=== PATIENT | male | born 1940 | race Caucasian/White ===

== ENCOUNTER 2020-05-21 13:26 | Inpatient (IN) | payer MEDICARE, SELFPAY ==
[2020-05-21] VITALS (8 sets, daily range): BP systolic 149–173; BP diastolic 66–88; PULSE 79–89; RESP 16–22; TEMP 36.1–37.2; O2SAT 96–100; BMI 35.3
--- NOTE | ~2020-05-21 | XR_ITS ---
EXAMINATION: XR chest 1V portable INDICATION: Soreness of breath TECHNIQUE: Portable AP chest at 0521 hours COMPARISON: 05/22/2020, 05/21/2020, 08/08/2008 FINDINGS: A mild diffuse interstitial pattern persists without significant change. A moderate size ri ght pleural effusion is unchanged. The heart size is stable. There is no pneumothorax. A stable right upper lobe mass is identified, stable since 2007 and likely benign. A dual-lead cardiac pacemaker of the left chest wall ends with leads in expected locations. IMPRESSION: 1. Mild pulmonary edema without significant change. Reviewed, dictated and finalized at location A.
--- NOTE | ~2020-05-21 | XR_ITS ---
XR elbow LT min 3V DATE: 05/27/2020 15:58 INDICATION: Left elbow posterior pain and swelling TECHNIQUE: 4 views COMPARISON: None FINDINGS: There is mild posterior soft tissue swelling which may be due to mild olecranon bursitis. T here is osteopenia. No fracture or dislocation or joint effusion. No periosteal reaction or bone dest ruction. IMPRESSION: Mild dorsal soft tissue swelling, possibly due to mild olecranon bursitis Osteopenia; no fracture or dislocation or joint effusion Reviewed, dictated and finalized at location A. IMPRESSION: Mild dorsal soft tissue swelling, possibly due to mild olecranon bu rsitis Osteopenia; no fracture or dislocation or joint effusion
--- NOTE | ~2020-05-21 | US_ITS ---
EXAMINATION: US arterial duplex LE DATE: 05/31/2020 16:30 INDICATION: Left popliteal artery aneurysm. TECHNIQUE: Multiple grayscale and Doppler ultrasound images of the left lower limb were obtained. COMPARISON: Left knee radiographs 05/30/2020 FINDINGS: Peak systolic velocities are 62 cm/s in left common femoral artery, 69 cm/s in deep femoral artery, 61 cm/s in proximal superficial femoral artery, 184 cm/s in mid superficial femoral artery, 36 cm/s in distal superficial femoral artery, 53 cm/s in popliteal artery, 42 cm/s in posterior tibia l artery, 36 cm/s in peroneal artery, and 37 cm/s in anterior tibial artery. There is a 1.5 cm fusifo rm aneurysm of popliteal artery. IMPRESSION: 1. 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 2. 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 Reviewed, dictated and finalized at location A. IMPRESSION: 1. 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 2. Moderate to severe arterial occlusive disease in left superficial femoral ar judy.
--- NOTE | ~2020-05-21 | XR_ITS ---
EXAMINATION: XR knee RT 3V EXAM DATE: 05/30/2020 13:32 INDICATION: Bilateral knee pain, osteoarthritis. TECHNIQUE: Three projections of the right knee. There is no prior study for comparison. FINDINGS: There is severe right knee patellofemoral and lateral tibiofemoral compartment primary oste oarthritis. Extensive arterial sclerotic disease. Small amount of joint fluid. There are no acute fr actures or dislocations identified. There is no subcutaneous gas. There are no radiopaque foreign bodies. IMPRESSION: Severe right knee osteoarthritis. Reviewed, dictated and finalized at location A.
--- NOTE | ~2020-05-21 | XR_ITS ---
EXAMINATION: XR knee LT 3V EXAM DATE: 05/30/2020 13:32 INDICATION: No known recent injury provided at this time. Pain of the left knee. TECHNIQUE: Three projections of the left knee. There is no prior study for comparison. FINDINGS: There is severe left knee patellofemoral and lateral tibiofemoral compartment primary osteo arthritis. Small joint effusion. There are extensive vascular calcifications. There is curvilinear c alcification contiguous to the distal popliteal arterial sclerosis, suspicious for an aneurysm which could be 2-3 cm. There are no acute fractures identified. There are no acute fractures or dislocation s identified. There is no subcutaneous gas. There are no radiopaque foreign bodies. IMPRESSION: 1. Severe left knee osteoarthritis. 2. Possible popliteal arterial 2 -3 cm aneurysm. Reviewed, dictated and finalized at location A.
--- NOTE | ~2020-05-21 | XR_ITS ---
EXAMINATION: XR chest 1V portable DATE: 05/21/2020 14:36 INDICATION: Cough. TECHNIQUE: A single frontal view of the chest was obtained on 2 radiographs. COMPARISON: PET/CT 08/08/2018 FINDINGS: There is a 4 cm right suprahilar mass. There are mild right perihilar airspace opacities. C alcified pulmonary nodules and calcified hilar and mediastinal lymph nodes are consistent with old gr anulomatous disease. No pleural effusion or pneumothorax. The heart size is normal. There is a left c hest wall pacer with leads in the right atrium and right ventricle. IMPRESSION: 1. 4 cm right suprahilar mass similar to the finding from 08/08/2008. Chest CT is recommended to excl ude malignancy. 2. Mild right perihilar airspace opacities, consistent with atelectasis versus pneumonia. Reviewed, dictated and finalized at location A. IMPRESSION: 1. 4 cm right suprahilar mass similar to the finding from 08/08/2008. Chest CT is recommended to exclude malignancy. 2. Mild right perihilar airspace opacities, consistent with atelectasis versus pneumonia.
--- NOTE | ~2020-05-21 | CT_ITS ---
EXAMINATION: CT chest abdomen pelvis w con DATE: 05/22/2020 16:42 INDICATION: Lung mass. TECHNIQUE: Computed tomography (CT) of the chest, abdomen, and pelvis was performed with 100 mL Omnip aque 350 intravenous contrast. Automated exposure control and iterative reconstruction technique were employed. The dose-length product was 1581.89 mGy-cm. COMPARISON: PET CT 08/08/2008 FINDINGS: CHEST CT: There are moderate-sized right and small left pleural effusions. Calcified pulmonary nodules and calc ified hilar and mediastinal lymph nodes are consistent with old granulomatous disease. There is ben h septal thickening lungs, consistent with mild pulmonary edema. There is a 6.5 x 3.5 cm right upper lobe mass. The heart size is normal. There are coronary artery calcifications. No pericardial effusio n. There is a left chest wall pacer with leads in the right atrium and right ventricle. There is bila teral gynecomastia. There is severe thoracic spondylosis. ABDOMEN/PELVIS CT: The liver is normal. There are changes of cholecystectomy. Calcifications in the spleen are consisten t with old granulomatous disease. The pancreas and adrenal glands are normal. There is mild atrophy o f the kidneys. There are cysts in the kidneys measuring up to 12 mm on the right. The bladder is deco mpressed by a Lee catheter. There are multiple stones in the bladder measuring up to 11 mm. There i s diffuse bladder wall thickening, which may be secondary to cystitis or chronic outlet obstruction. There are no dilated loops of bowel. The appendix is normal. There are no pathologically enlarged lym ph nodes. There is edema in the perirectal fat. There is severe lumbar spondylosis. There is anterior fusion from L1 to L3 and at L4-L5. IMPRESSION: 1. 6.5 x 3.5 cm right lung upper lobe mass, stable from 08/08/2008, likely benign. 2. Mild pulmonary edema. 3. Moderate-sized right and small left pleural effusions. 4. Bladder stones. Diffuse bladder wall thickening may be secondary to cystitis or chronic outlet obs truction. Reviewed, dictated and finalized at location A. IMPRESSION: 1. 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 2. Mild pulmonary edema. 3. Moderate-sized right and small left pleural effusions. 4. Bladder stones. Diffuse bladder wall thickening may be secondary to cystitis or chronic outlet obstruction.
--- NOTE | 2020-05-21 13:38 | ED.MALEGU ---
HPI - Male Genitourinary General Chief complaint: Urogenital-Male Stated complaint: PAIN WITH URINATION Time Seen by Provider: 05/21/20 13:27 History of Present Illness HPI Narrative: Brought in by EMS from home for pain with urination. He says that he can't pee and when he does it is painful. He has a roa catheter in place draining dark cloudy urine. He was reportedly recently hospitalized and treated for UTI and pneumonia. He does report a cough. No fever, SOB. Related Data Home Medications Medication Instructions Recorded Confirmed allopurinol 300 mg PO DAILY 05/21/20 05/21/20 aspirin 81 mg PO DAILY 05/21/20 05/21/20 calcipotriene 1 applic TOPICAL DAILY 05/21/20 05/21/20 calcitriol 0.25 mcg PO DAILY 05/21/20 05/21/20 cinacalcet 30 mg PO HS 05/21/20 05/21/20 citalopram 10 mg PO DAILY 05/21/20 05/21/20 desonide 1 applic TOPICAL BID PRN 05/21/20 05/21/20 ergocalciferol (vitamin D2) 1,250 mcg PO WEEKLY 05/21/20 05/21/20 [Vitamin D2] fludrocortisone 0.1 mg PO DAILY 05/21/20 05/21/20 fluticasone propionate [Allergy 1 spray INTRANASAL BID 05/21/20 05/21/20 Relief (fluticasone)] furosemide 40 mg PO DAILY 05/21/20 05/21/20 gemfibrozil 600 mg PO DAILY 05/21/20 05/21/20 hydrocodone-acetaminophen 1 tablet PO Q6H PRN 05/21/20 05/21/20 ipratropium-albuterol [Combivent 1 puff INHALATION Q4H 05/21/20 05/21/20 Respimat] lidocaine-prilocaine 2 g TOPICAL QID PRN 05/21/20 05/21/20 nitroglycerin 0.4 mg SUBLINGUAL Q5-15M PRN 05/21/20 05/21/20 omeprazole 40 mg PO DAILY 05/21/20 05/21/20 potassium chloride 10 meq PO DAILY 05/21/20 05/21/20 pramipexole 0.125 mg PO HS 05/21/20 05/21/20 umeclidinium-vilanterol [Anoro 1 inh INHALATION DAILY 05/21/20 05/21/20 Ellipta] Allergies Allergy/AdvReac Type Severity Reaction Status Date / Time No Known Allergies Allergy Verified 05/21/20 13:40 Review of Systems Review of Systems: All systems reviewed & are unremarkable except as noted in HPI and below Constitutional: Constitutional: Denies fever(s) ENT: Denies sore throat Cardiovascular: Cardiovascular: Denies chest pain Respiratory: Respiratory: Reports cough and Denies dyspnea Gastrointestinal: Gastrointestinal: Reports abdominal pain, Denies diarrhea, Denies nausea and Denies vomiting Genitourinary: Genitourinary: Denies hematuria and Reports dysuria Musculoskeletal: Musculoskeletal: Denies back pain PMF Past Medical History Medical History Amputation toe left great toe Chronic back pain Chronic GERD Community acquired pneumonia COPD (chronic obstructive pulmonary disease) Depression Dysfunction of parathyroid Gout HTN (hypertension) with goal to be determined Hyperlipidemia Lung mass Orthostatic hypotension Osteoarthritis Pacemaker left upper chest Peripheral artery disease Restless leg syndrome Surgical History Surgical History H/O bilateral cataract extraction H/O heart artery stent H/O hernia repair History of back surgery History of tonsillectomy Hx of cholecystectomy Family History Family History Mother Renal disease Cancer Congestive heart failure Son Opiate overdose Father Congestive heart failure Social History Social History Social History: he stated that his cousin lives with him. He is . He had 2 sons but 1 did of opiate overdose. The patient is a full code believes his nephew is a durable power passenger screener for healthcare. The patient retired from [employer]. The patient used to smoke and drink and states that he quit a long time ago. He denies any marijuana or drug use Tobacco type: cigarettes Alcohol intake: former Substance use: never Gender identity (if verbalized by the patient): Male Spiritual care concerns: No E
[2020-05-21 14:23] LABS: Add Urine Microscopic? YES; Appearance Urine Turbid (Clear); Bacteria Urine Trace /hpf; Bilirubin Urine 1+ (Negative); Blood Urine Negative (Negative); Color Urine Yellow (Yellow); Glucose Urine UA Negative (Negative); Ketones Urine Negative (Negative); Leukocyte Esterase Ur 2+ LEU/UL (Negative); Nitrate Urine Negative (Negative); Protein Urine 3+ mg/dL (Negative); RBC Urine 0-2 /hpf (0-2); Specific Grav Ur 1.019 (1.001-1.035); Urobilinogen Urine Negative mg/dL (<2.0); WBC Urine 0-3 /hpf
--- NOTE | 2020-05-21 14:25 | PC.NURSE ---
PT INTEGRITY ASSESSOR HAS CONTACTED AT THIS TIME TO INFORM THAT IF PT IS RELEASED TO CALL SISTER MARIA AT [phone].
[2020-05-21] MEDS: TOLNAFTATE 1% POWDER 45 GM BTL 1 APPLIC TOPICAL (14:44)
[2020-05-21] MEDS: SODIUM CHLORIDE 0.9% IV 1,000 ML 999 ML IV CONT (14:44)
--- NOTE | 2020-05-21 14:46 | PC.NURSE ---
SPOKE WITH ANTHONY TIWARI ABOUT PT RICARDO, INFORMED ERP THAT PT IS URINATING AROUND THE RICARDO AND STILL C/O PAIN. VERBAL ORDER GIVEN TO REMOVE RICARDO AND PLACE NEW. OLD RICARDO REMOVED AT THIS TIME, SEE CATH CHARTING.
[2020-05-21 14:54] LABS: Basophils Absolute Auto 0.1 K/mm3 (0.0-0.1); Basophils Percent Auto 0.6 % (0.2-1.2); Eosinophils Absolute Auto 0.1 K/mm3 (0-0.3); Eosinophils Percent Auto 1.4 % (0-4.4); Hematocrit 39.8 % (42.0-52.0); Hemoglobin 12.5 g/dL (14.0-18.0); Immature Granulocyte Absolute 0.03 K/mm3 (0.00-0.031); Immature Granulocyte Percent A 0.4 % (0-0.5); Lymphocytes Absolute Auto 1.02 K/mm3 (0.9-3.2); Mean Corpuscular HGB Conc 31.4 g/dl (32-36); Mean Corpuscular Hemoglobin 27.9 pg (26-34); Mean Corpuscular Volume 88.8 fl (80-100); Mean Platelet Volume 11.6 fl (7.4-10.4); Monocytes Absolute Auto 0.5 K/mm3 (0.1-0.6); Monocytes Percent Auto 6.9 % (2.6-8.5); Neutrophils Absolute Auto 6.1 K/mm3 (1.3-6.7); Neutrophils Percent Auto 77.7 % (45.5-73.1); Platelet Count Result 285 k/mm3 (150-375); Red Blood Count 4.48 M/mm3 (4.6-6.20); Red Cell Distribution Width 15.9 % (11.5-14.5); White Blood Count 7.9 K/mm3 (4.5-10.0)
[2020-05-21 15:06] LABS: Lactic Acid Reflex 1.2 mmol/L (0.7-2.1)
[2020-05-21 15:08] LABS: Alanine Aminotransferase 8 U/L (4-50); Albumin Level 3.8 g/dL (3.5-5.1); Alkaline Phosphatase 137 U/L (38-126); Anion Gap 7 mmol/L (8-16); Aspartate Amino Transferase 16 U/L (17-59); Bilirubin,Total 0.6 mg/dL (0.2-1.3); Blood Urea Nitrogen 19 mg/dL (9-20); CRP 1.3 mg/dL (<1.0); Calcium 8.9 mg/dL (8.4-10.2); Carbon Dioxide 27 mmol/L (22-30); Chloride 104 mmol/L (98-107); Estimated CRCL calculation 70 ml/min; Estimated Glomerular Filt Rate > 60; Glucose 93 mg/dL (75-110); Potassium 4.1 mmol/L (3.4-5.0); Sodium 138 mmol/L (137-145)
[2020-05-21 15:17] LABS: INR 1.2
[2020-05-21] MEDS: MORPHINE SULFATE 2 MG/ML INJ IV PUSH (15:23)
[2020-05-21] MEDS: MORPHINE SULFATE 4 MG/ML INJ 2 MG IV PUSH (18:13)
--- NOTE | 2020-05-21 18:54 | ADMGEN ---
This patient, Will Anderson, was admitted to Medical Room 345-. Patient/family oriented to hospital policies and general routines including ID bracelet, bed and alarms, visiting hours, pain management, procedures, bathroom and other care routines, personal items, smoking policy, room service/diet, and visiting hours. Valuables list has been completed. Information on how to activate the Rapid Response Team has been discussed. Patient/Family are encouraged to report perceived risks to care and to ask questions if they do not understand what they are told or what they should do.
[2020-05-21] MEDS: SODIUM CHLORIDE 0.9% IV 1,000 ML 125 ML IV CONT (20:30)
--- NOTE | 2020-05-22 | ECHO_ITS ---
Patient Info Name: Will Anderson Age: 79 years : 1940 Gender: Male Ht: 70 in Wt: 246 lbs BSA: 2.39 m2 HR: 80 bpm BP: 94 / 78 mmHg Heart Rhythm: Paced Technical Quality: Poor Exam Date: 05/22/2020 9:20 AM Exam Location: [facility] Exam Room: 345 Patient Status: Outpatient Admit Date: 05/21/2020 Staff Ordering Physician: Simin Gastelum NP Service Architect: Criselda Phan RDCS Attending Provider: Agustin Bradley MD Referring Physician: Oriana LEIGH; Exam Type: CA echo doppler color flow Study Info Indications - murmur Complete two-dimensional, color flow and Doppler transthoracic echocardiogram is performed with contrast to opacify the left ventricle and to improve the deliniation of the left ventricle endocardial borders. Contrast/Agitated Saline Contrast/Ag. Saline: Definity Amount: 2.00 ml Administered By: Erick Hendrix RN Existing IV Access: Yes IV Access Condition: patent with no signs of infiltration Reason for Poor Study: patient body habitus Summary 1. Left ventricular chamber dimension is mildly enlarged. 2. Left ventricular systolic function is severely reduced, estimated at 20-25%. 3. There is mildly increased left ventricular wall thickness. 4. Left ventricular septal wall motion is abnormal with septal motion related to pacing. 5. The left ventricular diastolic function is grade III diastolic dysfunction. 6. Probable small apical thrombus noted although not definitive and could be related to trabeculation. 7. Left atrial chamber dimension is mildly enlarged. 8. Right atrial chamber dimension is mildly enlarged. 9. There is moderate aortic valve sclerosis. 10. There is mild mitral valve regurgitation. 11. There is mild aortic valve calcification. 12. There is mild to moderate tricuspid valve regurgitation. 13. Mild pulmonary hypertension, estimated pulmonary arterial systolic pressure is 43 mmHg. Left Ventricle Left ventricular chamber dimension is mildly enlarged. Left ventricular systolic function is severely reduced, estimated at 20-25%. There is mildly increased left ventricular wall thickness. Left ventricular septal wall motion is abnormal with septal motion related to pacing. The left ventricular diastolic function is grade III diastolic dysfunction. Probable small apical thrombus noted although not definitive and could be related to trabeculation. Right Ventricle Right ventricular chamber dimension is normal. Right ventricular systolic function is normal. Left Atria Left atrial chamber dimension is mildly enlarged. Right Atria Right atrial chamber dimension is mildly enlarged. Atrial Septum Intact interatrial septum visualized by color flow imaging. Aortic Valve The aortic valve is trileaflet. There is moderate aortic valve sclerosis. There is no aortic valve stenosis. There is trace aortic valve regurgitation. There is mild aortic valve calcification. Pulmonic Valve The pulmonic valve is normal. There is no pulmonic valve stenosis. There is trace pulmonic regurgitation. Mitral Valve The mitral valve has thickened leaflets and calcified annulus. There is no mitral valve stenosis. There is mild mitral valve regurgitation. Tricuspid Valve The tricuspid valve leaflets are normal. There is no significant tricuspid valve stenosis. There is mild to moderate tricuspid valve regurgitation. Mild pulmonary hypertension, est
--- NOTE | 2020-05-22 00:21 | PM.IMHP ---
H&P: HPI History of Present Illness Date/Time: 05/22/20 00:21 Chief complaint: Dysuria, cutaneous candidiasis, possible pneumonia Narrative: Will Anderson is a 79 year old male Who called the ambulance because he had been leaking out of his Lee catheter. The patient had a Lee catheter placed several months ago. He says that home health comes in replaces it every month. Patient stated he was just discharged from [facility] recently. He was therefore pneumonia and urinary tract infection. Possibly urinary retention. He said he thinks he has seen a urologist in the past for his urinary retention. The patient is a very poor historian. Patient has not had any fever chills he had burning sensation felt like he had a urinate and was trying to push in urinate to the Lee catheter. He noticed a lot of thick milky drainage and his Lee catheter. The patient stated he was leaking out around the Lee catheter. And it was burning. The patient is weak and walks with a walker. Patient has redness and his abdominal folds and was ordered to often a powder. Patient's chest x-ray was read as 4 cm suprahilar mass similar to finding from 08/08/[address] is recommended to exclude malignancy. Mild right perihilar airspace opacities consistent with atelectasis versus pneumonia. The patient had not been started on any antibiotics. Is unsure when the patient was treated for pneumonia at [facility]. He does not have a fever or cough. Date of service is 05/21/2020 Review of Systems Review of Systems: All systems reviewed & are unremarkable except as noted in HPI and below Constitutional: Constitutional: Reports as per HPI and Reports no additional constitutional complaints Eyes: Eyes: Reports as per HPI and Reports no additional eye complaints ENT: Reports system reviewed and no additional complaints, except as documented and Reports Normal hearing present Cardiovascular: Cardiovascular: Reports no additional cardiovascular complaints Respiratory: Respiratory: Reports no additional respiratory complaints and Reports no additional respiratory complaints Gastrointestinal: Gastrointestinal: Reports as per HPI and Reports no additional gastrointestinal complaints Musculoskeletal: Musculoskeletal: Reports no additional musculoskeletal complaints Integumentary/Breasts: Skin/Breast: Reports system reviewed and no additional complaints, except as docu and Reports as per HPI Neurologic: Reports system reviewed and no additional complaints, except as documented, Reports as per HPI and Reports Normal hearing present Psychiatric: Psychiatric: Reports no additional psychiatric complaints and Reports as per HPI Endocrine: Endocrine: Reports no additional endocrine complaints Hematologic/Lymphatic: Hematologic/Lymphatic: Reports no additional hematologic/lymphatic complaints Allergic/Immunologic: Allergic/Immunologic: Reports no additional allergic/immunologic complaints [facility] Past Medical History Medical History (Updated 05/22/20 @ 00:52 by Simin Gastelum NP) Amputation toe left great toe Chronic back pain Chronic GERD Community acquired pneumonia COPD (chronic obstructive pulmonary disease) Depression Dysfunction of parathyroid Gout HTN (hypertension) with goal to be determined Hyperlipidemia Lung mass Orthostatic hypotension Osteoarthritis Pacemaker left upper chest Peripheral artery disease Restless leg syndrome Surgical History Surgical History (Updated 05/22/20 @ 00:49 by Simin Gastelum NP) H/O bilateral cataract extraction H/O heart artery stent H/O hernia repair History of back surgery History of tonsillectomy Hx of cholecystectomy Family History Family History (Updated 05/22/20 @ 00:34 by Simin Gastelum NP) Mother Renal disease Cancer Congestive heart failure Son Opiate overdose Father Congestive heart failure Social History Social History (Updated 05/22/20 @ 00:35 by Simin
[2020-05-22 04:42] VITALS: BP 94/78; PULSE 80; RESP 14; TEMP 36.1; O2SAT 95
[2020-05-22] MEDS: SODIUM CHLORIDE 0.9% IV 1,000 ML 125 ML IV CONT ×2 (05:52→14:52)
[2020-05-22 06:10] LABS: Parathyroid Intact 52.2 pg/mL (7.5-53.5)
[2020-05-22] MEDS: gemfibroziL 600 MG TABLET PO (08:37)
[2020-05-22] MEDS: FUROSEMIDE 40 MG TABLET PO (09:04)
[2020-05-22] MEDS: allopurinoL 300 MG TABLET PO (09:04)
[2020-05-22] MEDS: CITALOPRAM HYDROBROMIDE 10 MG TABLET PO (09:05)
[2020-05-22] MEDS: ASPIRIN 81 MG CHEWABLE TABLET PO (09:05)
[2020-05-22] MEDS: PANTOPRAZOLE 40 MG TABLET PO (09:05)
[2020-05-22] MEDS: POTASSIUM CHLORIDE 10 MEQ TABLET.ER PO (09:05)
[2020-05-22] MEDS: FLUDROCORTISONE ACETATE 0.1 MG TABLET PO (09:05)
[2020-05-22] MEDS: calcitrioL 0.25 MCG CAPSULE PO (09:05)
[2020-05-22] MEDS: TOLNAFTATE 1% POWDER 45 GM BTL 1 APPLIC TOPICAL ×2 (09:06→21:38)
[2020-05-22] MEDS: FLUTICASONE PROPIONATE 0.05% NA SPR 16 GM BTL (*BKC) 1 SPRAY NASAL ×2 (09:45→16:53)
--- NOTE | 2020-05-22 12:12 | PM.IMPN ---
Progress Note: A&P Assessment and Plan (1) Community acquired pneumonia: Code(s): J18.9 - Pneumonia, unspecified organism Status: Acute Assessment and Plan: Patient is on azithromycin Rocephin. Awaiting Blood and sputum cultures pending. (2) Hyperlipidemia: Code(s): E78.5 - Hyperlipidemia, unspecified Status: Chronic Assessment and Plan: Continue with gemfibrozil (3) HTN (hypertension) with goal to be determined: Code(s): I10 - Essential (primary) hypertension Status: Chronic Assessment and Plan: Hold Bp medications. he was started on Florinef and iV fluids (4) Lung mass: Code(s): R91.8 - Other nonspecific abnormal finding of lung field Status: Chronic Assessment and Plan: Awaiting CT chest (5) COPD (chronic obstructive pulmonary disease): Code(s): J44.9 - Chronic obstructive pulmonary disease, unspecified Status: Chronic Assessment and Plan: Continue with inhalers. (6) UTI (urinary tract infection): Code(s): N39.0 - Urinary tract infection, site not specified Status: Acute Assessment and Plan: Blood and urine cultures are pending (7) Urinary retention: Code(s): R33.9 - Retention of urine, unspecified Status: Acute Assessment and Plan: patient had a indwelling Lee catheter. Pt sees urology awaiting recommendations (8) Depression: Code(s): F32.9 - Major depressive disorder, single episode, unspecified Status: Chronic Assessment and Plan: continue with Celexa (9) Orthostatic hypotension: Code(s): I95.1 - Orthostatic hypotension Status: Chronic Assessment and Plan: continue with Florinef (10) Gout: Code(s): M10.9 - Gout, unspecified Status: Chronic Assessment and Plan: continue with allopurinol. (11) Restless leg syndrome: Code(s): G25.81 - Restless legs syndrome Status: Chronic Assessment and Plan: Continue with ropinirole (12) Chronic back pain: Code(s): M54.9 - Dorsalgia, unspecified; G89.29 - Other chronic pain Status: Chronic Assessment and Plan: continue with hydrocodone (13) Chronic GERD: Code(s): K21.9 - Gastro-esophageal reflux disease without esophagitis Status: Chronic (14) Dysfunction of parathyroid: Code(s): E21.4 - Other specified disorders of parathyroid gland Status: Chronic Assessment and Plan: patient is on Sensipar. Subjective Date/time seen: 05/22/20 12:12 Interval history: 79 year old male Who called the ambulance because he had been leaking out of his Lee catheter. The patient had a Lee catheter placed several months ago. Admitted now for UTI, CAP ? lung mass- 4 cm r suprahilar. Pt is awaiting CTchest and ECho Review of Systems Review of Systems: All systems reviewed & are unremarkable except as noted in HPI and below Constitutional: Constitutional: Reports fatigue and Reports lethargy Cardiovascular: Cardiovascular: Denies chest pain Respiratory: Respiratory: Reports cough and Reports dyspnea Gastrointestinal: Gastrointestinal: Reports no additional gastrointestinal complaints Genitourinary: Genitourinary: Reports dysuria and Reports urinary frequency Exam Const: General: cooperative, healthy appearing, comfortable, no acute distress, well developed, alert ( poor historian), awake and Physically active Nutritional Appearance: overweight Orientation/consciousness: oriented to person and oriented to place Limitations: no limitations Other: poor historian Resp: Effort & Inspection: normal respiratory effort Auscultation: clear to auscultation bilaterally Percussion: percussion normal Cardio: Palpation: normal PMI Rate: regular rate Rhythm: regular rhythm Heart sounds: S1 normal heart sound present, S2 normal heart sound present and Murmur heart sound present ( left sternal)
--- NOTE | 2020-05-22 13:31 | WPDURCON ---
Assessment and Plan Assessment and plan (1) Urinary retention: Code(s): R33.9 - Retention of urine, unspecified Status: Acute Assessment and Plan: Will plan to keep roa in at this time and follow up with Dr. Snow on 05/30/2020 at 11:30am to discuss SP tube placement. No catheter changes until his appointment are needed unless catheter should become clogged again and he should call the office to be see immediately. (2) UTI (urinary tract infection): Code(s): N39.0 - Urinary tract infection, site not specified Status: Acute Assessment and Plan: Continue IV antibiotics, tailor to urine culture results. (3) Prostate cancer: Code(s): C61 - Malignant neoplasm of prostate Status: Acute Assessment and Plan: Will plant to resume ADT therapy once records are obtained by the patient from Dr. Sweeney. We have attempted to obtain them and were unsuccessful. NO further evaluation needed at this time. Urology Consult Note HPI Date Seen: 05/22/20 Requesting Physician: Agustin Bradley MD Primary Care Provider: VIDEO CONFERENCE SPECIALIST PHYSICIAN Consult Narrative Narrative: Will Anderson is a 79 year old male who presented to the ER yesterday with a leaking catheter via ambulance. He is a previous patient of Dr. Seweney (Urology), but no longer sees him and has been established with our group and has seen Dr. Snow, most recently on 04/23/2020 and 05/15/2020. Both visits he had a catheter replacement d/t obstruction of catheter. He has a history of prostate cancer in which he was being treated for by Dr. Sweeney with ADT therapy, but it was stopped and he has yet to resume therapy. Dr. Snow was unable to get his records to see what treatment he was on, as the patient does not know. Dr. Snow would like to resume treatment for his prostate cancer once records have been reviewed. It was last noted that the patient and his sister would get the records from Dr. Sweeney's office. He has had his catheter for several months, intially it was placed at the hospital d/t a neurogenic bladder and was being changed monthly at home with home health until the last month when it has been changed three times, most recently in the ER yesterday d/t it being clogged. He is a poor historian and he has no family at the bedside. His WBC is 7.9, creatinine is 1.00, UA is suggestive of a UTI and urine culture is pending. Dr. Snow also discussed at his office visit that trying to place a suprapubic tube isn't unreasonable, but may not function any better than the urthral catheter. He is scheduled to follow up with Dr. Snow on 05/30/2020. Review of Systems Respiratory: Respiratory: Reports no additional respiratory complaints Gastrointestinal: Gastrointestinal: Denies abdominal pain, Denies nausea and Denies vomiting Genitourinary: Genitourinary: Denies hematuria, Denies flank pain and Reports other (chronic retention) [facility] Past Medical History Medical History Amputation toe left great toe Chronic back pain Chronic GERD Community acquired pneumonia COPD (chronic obstructive pulmonary disease) Depression Dysfunction of parathyroid Gout HTN (hypertension) with goal to be determined Hyperlipidemia Lung mass Orthostatic hypotension Osteoarthritis Pacemaker left upper chest Peripheral artery disease Restless leg syndrome Surgical History Surgical History H/O bilateral cataract extraction H/O heart artery stent H/O hernia repair History of back surgery History of tonsillectomy Hx of cholecystectomy Family History Family History Mother Renal disease Cancer Congestive heart failure Son Opiate overdose Father Congestive heart failure Social History Social History (Reviewed 05/22/20 @ 13:45 by Chata Guadalupe,
[2020-05-22 14:00] VITALS: BP 139/90; PULSE 80; RESP 18; TEMP 36.3; O2SAT 100
[2020-05-22 21:27] VITALS: BP 154/67; PULSE 58; RESP 16; TEMP 36.1; O2SAT 96
[2020-05-22] MEDS: PRAMIPEXOLE 0.125 MG TABLET PO (21:38)
[2020-05-22] MEDS: CINACALCET 30 MG TABLET PO (21:38)
[2020-05-23] MEDS: SODIUM CHLORIDE 0.9% IV 1,000 ML 125 ML IV CONT (01:00)
[2020-05-23 05:13] VITALS: BP 132/62; PULSE 79; RESP 18; TEMP 36.1; O2SAT 98
[2020-05-23] MEDS: gemfibroziL 600 MG TABLET PO (05:21)
[2020-05-23 06:54] LABS: Basophils Absolute Auto 0.1 K/mm3 (0.0-0.1); Basophils Percent Auto 1.4 % (0.2-1.2); Eosinophils Absolute Auto 0.3 K/mm3 (0-0.3); Eosinophils Percent Auto 5.1 % (0-4.4); Hematocrit 36.8 % (42.0-52.0); Hemoglobin 11.3 g/dL (14.0-18.0); Immature Granulocyte Absolute 0.02 K/mm3 (0.00-0.031); Immature Granulocyte Percent A 0.3 % (0-0.5); Lymphocytes Absolute Auto 1.14 K/mm3 (0.9-3.2); Lymphocytes Percent Auto 19.5 % (18.3-44.2); Mean Corpuscular HGB Conc 30.7 g/dl (32-36); Mean Corpuscular Hemoglobin 28.1 pg (26-34); Mean Corpuscular Volume 91.5 fl (80-100); Mean Platelet Volume 11.1 fl (7.4-10.4); Monocytes Absolute Auto 0.5 K/mm3 (0.1-0.6); Monocytes Percent Auto 8.9 % (2.6-8.5); Neutrophils Absolute Auto 3.8 K/mm3 (1.3-6.7); Neutrophils Percent Auto 64.8 % (45.5-73.1); Platelet Count Result 227 k/mm3 (150-375); Red Blood Count 4.02 M/mm3 (4.6-6.20); Red Cell Distribution Width 15.8 % (11.5-14.5); White Blood Count 5.9 K/mm3 (4.5-10.0)
[2020-05-23 07:07] LABS: Lactic Acid Reflex 0.7 mmol/L (0.7-2.1)
[2020-05-23 07:12] LABS: Alanine Aminotransferase 7 U/L (4-50); Albumin Level 3.2 g/dL (3.5-5.1); Alkaline Phosphatase 98 U/L (38-126); Anion Gap 4 mmol/L (8-16); Aspartate Amino Transferase 16 U/L (17-59); Bilirubin,Total 0.2 mg/dL (0.2-1.3); Blood Urea Nitrogen 19 mg/dL (9-20); Calcium 7.8 mg/dL (8.4-10.2); Carbon Dioxide 30 mmol/L (22-30); Chloride 103 mmol/L (98-107); Estimated CRCL calculation 68 ml/min; Estimated Glomerular Filt Rate > 60; Glucose 91 mg/dL (75-110); Magnesium 1.6 mg/dL (1.6-2.3); Potassium 3.6 mmol/L (3.4-5.0); Sodium 137 mmol/L (137-145)
[2020-05-23] MEDS: ASPIRIN 81 MG CHEWABLE TABLET PO (09:26)
[2020-05-23] MEDS: PANTOPRAZOLE 40 MG TABLET PO (09:26)
[2020-05-23] MEDS: calcitrioL 0.25 MCG CAPSULE PO (09:26)
[2020-05-23] MEDS: FLUDROCORTISONE ACETATE 0.1 MG TABLET PO (09:26)
[2020-05-23] MEDS: TOLNAFTATE 1% POWDER 45 GM BTL 1 APPLIC TOPICAL ×2 (09:27→20:49)
[2020-05-23] MEDS: allopurinoL 300 MG TABLET PO (09:27)
[2020-05-23] MEDS: FLUTICASONE PROPIONATE 0.05% NA SPR 16 GM BTL (*BKC) 1 SPRAY NASAL ×2 (09:27→17:14)
[2020-05-23 09:28] VITALS: RESP 18; O2SAT 98
[2020-05-23] MEDS: POTASSIUM CHLORIDE 10 MEQ TABLET.ER PO (09:28)
[2020-05-23] MEDS: CITALOPRAM HYDROBROMIDE 10 MG TABLET PO (09:28)
--- NOTE | 2020-05-23 12:42 | PM.IMPN ---
Progress Note: A&P Assessment and Plan (1) Community acquired pneumonia: Code(s): J18.9 - Pneumonia, unspecified organism Status: Acute Assessment and Plan: Patient is on azithromycin Rocephin. Awaiting Blood and sputum cultures pending. (2) Hyperlipidemia: Code(s): E78.5 - Hyperlipidemia, unspecified Status: Chronic Assessment and Plan: Continue with gemfibrozil (3) HTN (hypertension) with goal to be determined: Code(s): I10 - Essential (primary) hypertension Status: Chronic Assessment and Plan: Hold Bp medications. he was started on Florinef and iV fluids (4) Lung mass: Code(s): R91.8 - Other nonspecific abnormal finding of lung field Status: Chronic Assessment and Plan: sp CT CHEST AND ABDOMEN -showing 6.5 x 3.5 cm right lung upper lobe mass, stable from 08/08/2008, likely benign. 2. Mild pulmonary edema. 3. Moderate-sized right and small left pleural effusions. 4. Bladder stones. Diffuse bladder wall thickening may be secondary to cystitis or chronic outlet obstruction. pt will need pulmology follow up on outpatient (5) COPD (chronic obstructive pulmonary disease): Code(s): J44.9 - Chronic obstructive pulmonary disease, unspecified Status: Chronic Assessment and Plan: Continue with inhalers. (6) UTI (urinary tract infection): Code(s): N39.0 - Urinary tract infection, site not specified Status: Acute Assessment and Plan: Blood and urine cultures are pending (7) Urinary retention: Code(s): R33.9 - Retention of urine, unspecified Status: Acute Assessment and Plan: Patient had a indwelling suprapubic catheter, sees urology recommendations (8) Depression: Code(s): F32.9 - Major depressive disorder, single episode, unspecified Status: Chronic Assessment and Plan: continue with Celexa (9) Orthostatic hypotension: Code(s): I95.1 - Orthostatic hypotension Status: Chronic Assessment and Plan: continue with Florinef (10) Gout: Code(s): M10.9 - Gout, unspecified Status: Chronic Assessment and Plan: continue with allopurinol. (11) Restless leg syndrome: Code(s): G25.81 - Restless legs syndrome Status: Chronic Assessment and Plan: Continue with ropinirole (12) Chronic back pain: Code(s): M54.9 - Dorsalgia, unspecified; G89.29 - Other chronic pain Status: Chronic Assessment and Plan: continue with hydrocodone (13) Chronic GERD: Code(s): K21.9 - Gastro-esophageal reflux disease without esophagitis Status: Chronic (14) Dysfunction of parathyroid: Code(s): E21.4 - Other specified disorders of parathyroid gland Status: Chronic Assessment and Plan: patient is on Sensipar. Subjective Date/time seen: 05/23/20 12:42 Interval history: 79 year old male Who called the ambulance because he had been leaking out of his Lee catheter. The patient had a Lee catheter placed several months ago. Admitted now for UTI, CAP ? lung mass- 4 cm r suprahilar. Pt is awaiting CTchest/ abdo and pelvis - showing 6.5 x 3.5 cm right lung upper lobe mass, stable from 08/08/2008, likely benign. 2. Mild pulmonary edema. 3. Moderate-sized right and small left pleural effusions. 4. Bladder stones. Diffuse bladder wall thickening may be secondary to cystitis or chronic outlet obstruction. Review of Systems Review of Systems: ROS unobtainable: Yes other (unwell cough tired ) Constitutional: Constitutional: Reports fatigue and Reports lethargy Cardiovascular: Cardiovascular: Denies chest pain and Reports dyspnea Respiratory: Respiratory: Reports cough and Reports dyspnea Gastrointestinal: Gastrointestinal: Reports no additional gastrointestinal complaints Genitourinary: Genitourinary: Reports dysuria and Reports urinary frequency Neurologic: Reports Normal hear
[2020-05-23] MEDS: SODIUM CHLORIDE 0.9% IV 1,000 ML 100 ML IV CONT (13:37)
[2020-05-23 14:00] VITALS: BP 126/84; PULSE 79; RESP 20; TEMP 36.3; O2SAT 98
[2020-05-23 20:00] VITALS: BP 137/54; PULSE 79; RESP 20; TEMP 36.2; O2SAT 98
[2020-05-23] MEDS: CINACALCET 30 MG TABLET PO (20:47)
[2020-05-23] MEDS: PRAMIPEXOLE 0.125 MG TABLET PO (20:47)
[2020-05-24] MEDS: SODIUM CHLORIDE 0.9% IV 1,000 ML 100 ML IV CONT ×2 (01:00→11:03)
[2020-05-24 04:00] VITALS: BP 152/71; PULSE 79; RESP 20; TEMP 36.3; O2SAT 98
[2020-05-24 06:05] LABS: Hematocrit 35.9 % (42.0-52.0); Hemoglobin 11.2 g/dL (14.0-18.0); Mean Corpuscular HGB Conc 31.2 g/dl (32-36); Mean Corpuscular Hemoglobin 27.7 pg (26-34); Mean Corpuscular Volume 88.6 fl (80-100); Mean Platelet Volume 11.3 fl (7.4-10.4); Platelet Count Result 242 k/mm3 (150-375); Red Blood Count 4.05 M/mm3 (4.6-6.20); Red Cell Distribution Width 15.6 % (11.5-14.5); White Blood Count 5.6 K/mm3 (4.5-10.0)
[2020-05-24 06:08] LABS: Anion Gap 4 mmol/L (8-16); Blood Urea Nitrogen 18 mg/dL (9-20); Calcium 7.7 mg/dL (8.4-10.2); Carbon Dioxide 28 mmol/L (22-30); Chloride 105 mmol/L (98-107); Estimated CRCL calculation 75 ml/min; Estimated Glomerular Filt Rate > 60; Glucose 97 mg/dL (75-110); Potassium 3.8 mmol/L (3.4-5.0); Sodium 137 mmol/L (137-145)
[2020-05-24] MEDS: gemfibroziL 600 MG TABLET PO (06:18)
[2020-05-24 08:00] VITALS: PULSE 79; RESP 20; O2SAT 98
[2020-05-24] MEDS: FLUTICASONE PROPIONATE 0.05% NA SPR 16 GM BTL (*BKC) 1 SPRAY NASAL ×2 (10:38→17:56)
[2020-05-24] MEDS: PANTOPRAZOLE 40 MG TABLET PO (10:39)
[2020-05-24] MEDS: FLUDROCORTISONE ACETATE 0.1 MG TABLET PO (10:39)
[2020-05-24] MEDS: CITALOPRAM HYDROBROMIDE 10 MG TABLET PO (10:39)
[2020-05-24] MEDS: POTASSIUM CHLORIDE 10 MEQ TABLET.ER PO (10:39)
[2020-05-24] MEDS: allopurinoL 300 MG TABLET PO (10:39)
[2020-05-24] MEDS: ASPIRIN 81 MG CHEWABLE TABLET PO (10:39)
[2020-05-24] MEDS: calcitrioL 0.25 MCG CAPSULE PO (10:40)
--- NOTE | 2020-05-24 10:40 | PM.IMPN ---
Progress Note: A&P Assessment and Plan (1) Acute on chronic systolic (congestive) heart failure: Code(s): I50.23 - Acute on chronic systolic (congestive) heart failure Status: Acute Assessment and Plan: Echo 05/22: Summary 1. Left ventricular chamber dimension is mildly enlarged. 2. Left ventricular systolic function is severely reduced, estimated at 20-25%. 3. There is mildly increased left ventricular wall thickness. 4. Left ventricular septal wall motion is abnormal with septal motion related to pacing. 5. The left ventricular diastolic function is grade III diastolic dysfunction. 6. Probable small apical thrombus noted although not definitive and could be related to trabeculation. 7. Left atrial chamber dimension is mildly enlarged. 8. Right atrial chamber dimension is mildly enlarged. 9. There is moderate aortic valve sclerosis. 10. There is mild mitral valve regurgitation. 11. There is mild aortic valve calcification. 12. There is mild to moderate tricuspid valve regurgitation. 13. Mild pulmonary hypertension, estimated pulmonary arterial systolic pressure is 43 mmHg. Stop Florinef and IVF IV furosemide 05/24 Carvedilol 3.125mg PO q 12 hours Cardiology evaluation (2) Abnormal chest x-ray: Code(s): R93.89 - Abnormal findings on diagnostic imaging of other specified body structures Status: Acute Assessment and Plan: Clinically this is CHF and not CAP Stop azithromycin and ceftriaxone See above (3) UTI (urinary tract infection): Qualifiers: Urinary tract infection type: site unspecified Hematuria presence: without hematuria Qualified Code(s): N39.0 - Urinary tract infection, site not specified Code(s): N39.0 - Urinary tract infection, site not specified Status: Acute Assessment and Plan: Culture with Enterococcus, likely due to catheter Removal of catheter would be ideal IV Unasyn (4) HTN (hypertension) with goal to be determined: Code(s): I10 - Essential (primary) hypertension Status: Chronic Assessment and Plan: Antihypertensives on hold 05/24 BP 152/71, so stop florinef and fluids; treat CHF (5) Lung mass: Code(s): R91.8 - Other nonspecific abnormal finding of lung field Status: Chronic Assessment and Plan: CT CHEST AND ABDOMEN: 1. 6.5 x 3.5 cm right lung upper lobe mass, stable from 08/08/2008, likely benign. 2. Mild pulmonary edema. 3. Moderate-sized right and small left pleural effusions. 4. Bladder stones. Diffuse bladder wall thickening may be secondary to cystitis or chronic outlet obstruction. F/u with PCP (6) COPD (chronic obstructive pulmonary disease): Qualifiers: COPD type: unspecified COPD Qualified Code(s): J44.9 - Chronic obstructive pulmonary disease, unspecified Code(s): J44.9 - Chronic obstructive pulmonary disease, unspecified Status: Chronic Assessment and Plan: No sign of acute bronchospasm Continue home meds (7) Urinary retention: Code(s): R33.9 - Retention of urine, unspecified Status: Acute Assessment and Plan: Patient had a indwelling suprapubic catheter Urology following (8) Depression: Qualifiers: Depression Type: unspecified Qualified Code(s): F32.9 - Major depressive disorder, single episode, unspecified Code(s): F32.9 - Major depressive disorder, single episode, unspecified Status: Chronic Assessment and Plan: Continue citalopram (9) Orthostatic hypotension: Code(s): I95.1 - Orthostatic hypotension Status: Chronic Assessment and Plan: 05/24 yancy (10) Gout: Qualifiers: Gout site: unspecified site Gout etiology: unspecified cause Chronicity: unspecified Qualified Code(s): M10.9 - Gout, unspecified Code(s): M10.9 - Gout, unspecified Status: Chronic Assessment and Plan: continue a
[2020-05-24] MEDS: TOLNAFTATE 1% POWDER 45 GM BTL 1 APPLIC TOPICAL ×2 (10:53→21:33)
[2020-05-24 14:00] VITALS: BP 148/64; PULSE 80; RESP 18; TEMP 36.3; O2SAT 98
[2020-05-24] MEDS: AMPICILLIN SODIUM/SULBACTAM 3 GM in SODIUM CHLORIDE 0.9% IV 100 ML IVPB (17:56)
[2020-05-24] MEDS: FUROSEMIDE INJ 40 MG/4 ML VIAL IV PUSH (17:56)
[2020-05-24] MEDS: POTASSIUM CHLORIDE 20 MEQ TABLET.ER PO (17:56)
[2020-05-24 20:00] VITALS: BP 150/56; PULSE 60; PULSE 85; RESP 22; TEMP 36.6; O2SAT 96
[2020-05-24 21:32] VITALS: PULSE 60
[2020-05-24] MEDS: PRAMIPEXOLE 0.125 MG TABLET PO (21:32)
[2020-05-24] MEDS: carvediloL 3.125 MG TABLET PO (21:32)
[2020-05-24] MEDS: CINACALCET 30 MG TABLET PO (21:32)
[2020-05-24 22:04] VITALS: PULSE 63; RESP 21; O2SAT 95
[2020-05-24 22:37] LABS: Cholesterol 123 mg/dL (0-200); HDL Direct 30 mg/dL; Triglycerides 175 mg/dL (<150)
[2020-05-24 22:47] LABS: LDL Cholesterol Direct 64 mg/dL; NT Pro B Type Natriuretic Pept 9950 PG/ML (5-100)
[2020-05-25] VITALS (12 sets, daily range): BP systolic 119–148; BP diastolic 52–60; PULSE 43–105; RESP 13–20; TEMP 36.2–36.8; O2SAT 93–96
[2020-05-25] MEDS: AMPICILLIN SODIUM/SULBACTAM 3 GM in SODIUM CHLORIDE 0.9% IV 100 ML IVPB ×2 (00:22→06:36)
[2020-05-25] MEDS: gemfibroziL 600 MG TABLET PO (06:35)
[2020-05-25 07:00] LABS: Anion Gap 5 mmol/L (8-16); Blood Urea Nitrogen 18 mg/dL (9-20); Calcium 7.8 mg/dL (8.4-10.2); Carbon Dioxide 34 mmol/L (22-30); Chloride 99 mmol/L (98-107); Estimated CRCL calculation 68 ml/min; Estimated Glomerular Filt Rate > 60; Glucose 97 mg/dL (75-110); Magnesium 1.6 mg/dL (1.6-2.3); Potassium 3.9 mmol/L (3.4-5.0); Sodium 138 mmol/L (137-145)
[2020-05-25] MEDS: FUROSEMIDE INJ 40 MG/4 ML VIAL IV PUSH (07:54)
[2020-05-25] MEDS: calcitrioL 0.25 MCG CAPSULE PO (07:55)
[2020-05-25] MEDS: allopurinoL 300 MG TABLET PO (07:56)
[2020-05-25] MEDS: ASPIRIN 81 MG CHEWABLE TABLET PO (07:56)
[2020-05-25] MEDS: carvediloL 3.125 MG TABLET PO ×2 (07:56→20:52)
[2020-05-25] MEDS: FLUTICASONE PROPIONATE 0.05% NA SPR 16 GM BTL (*BKC) 1 SPRAY NASAL ×2 (07:56→17:59)
[2020-05-25] MEDS: POTASSIUM CHLORIDE 20 MEQ TABLET.ER PO ×2 (07:56→18:01)
[2020-05-25] MEDS: CITALOPRAM HYDROBROMIDE 10 MG TABLET PO (07:57)
[2020-05-25] MEDS: PANTOPRAZOLE 40 MG TABLET PO (07:57)
--- NOTE | 2020-05-25 10:19 | PM.CNCAR ---
Assessment and Plan Assessment and plan (1) Acute on chronic systolic (congestive) heart failure: Code(s): I50.23 - Acute on chronic systolic (congestive) heart failure Status: Acute Assessment and Plan: He seems to be better since admission, still has some crackles, he is diuresing well with current medications, agree with Lasix is already on valsartan and Coreg, agree with that, his echocardiogram showed suspected apical thrombus, but does not seem to be actual thrombus no need for anticoagulation at this time based on that (2) Hyperlipidemia: Qualifiers: Hyperlipidemia type: unspecified Qualified Code(s): E78.5 - Hyperlipidemia, unspecified Code(s): E78.5 - Hyperlipidemia, unspecified Status: Chronic (3) HTN (hypertension) with goal to be determined: Code(s): I10 - Essential (primary) hypertension Status: Chronic Assessment and Plan: seems to be well controlled now continue with valsartan and Coreg (4) Ischemic cardiomyopathy with implantable cardioverter-defibrillator (ICD): Code(s): I25.5 - Ischemic cardiomyopathy; Z95.810 - Presence of automatic (implantable) cardiac defibrillator Status: Acute Assessment and Plan: He has severe left ventricular systolic dysfunction, and he has ICD, seems to have mild decompensation, which is getting better since admission, agree with Lasix p.o. and valsartan, will continue to watch input and outputs closely. Additional Plan Thank you for allowing me to participate in this patient's care, I will be following up with you. Please do not hesitate to call me for any other inquiry History of Present Illness History of Present Illness Consult date/time: 05/25/20 10:19 79 years old gentleman, with history of coronary artery disease status post multiple stents, and history of known ischemic cardiomyopathy, status post ICD placement, was admitted to the hospital because of dysuria and urine tract infection, with suspected pneumonia. Had an echocardiogram revealing severe left ventricular systolic dysfunction, with suspected apical thrombus. Upon further questioning, he denied any chest pain he has mild shortness of breath which improved since admission, he has mild orthopnea and mild leg swelling. He sees choreography director at [facility] Dr. Fernandez, and he stated that he recently had ICD placement. No new event with his device, he seems to be getting paced on occasions. No active chest pain no recent major event. His breathing is better since admission, and no fever. No palpitation no dizziness he has generalized weakness and fatigue Reason For Visit: Dysuria, cutaneous candidiasis, possible pneumonia Review of Systems Constitutional: Constitutional: Reports lethargy Cardiovascular: Cardiovascular: Reports as per HPI Respiratory: Respiratory: Reports dyspnea Gastrointestinal: Gastrointestinal: Reports no additional gastrointestinal complaints [facility] Past Medical History Medical History Amputation toe left great toe Chronic back pain Chronic GERD Community acquired pneumonia COPD (chronic obstructive pulmonary disease) Depression Dysfunction of parathyroid Gout HTN (hypertension) with goal to be determined Hyperlipidemia Lung mass Orthostatic hypotension Osteoarthritis Pacemaker left upper chest Peripheral artery disease Restless leg syndrome Surgical History Surgical History H/O bilateral cataract extraction H/O heart artery stent H/O hernia repair History of back surgery History of tonsillectomy Hx of cholecystectomy Family History Family History Mother Renal disease Cancer Congestive heart failure Son Opiate overdose Father Congestive heart failure Social History Social History (Reviewed 05/22/20 @ 13:45 by Chata
--- NOTE | 2020-05-25 10:42 | P.PNIM_ITS ---
Progress Note: A&P Assessment and Plan (1) Acute on chronic systolic (congestive) heart failure: Code(s): I50.23 - Acute on chronic systolic (congestive) heart failure Status: Acute Assessment and Plan: * Echo 05/22: Summary 1. Left ventricular chamber dimension is mildly enlarged. 2. Left ventricular systolic function is severely reduced, estimated at 20-25%. 3. There is mildly increased left ventricular wall thickness. 4. Left ventricular septal wall motion is abnormal with septal motion related to pacing. 5. The left ventricular diastolic function is grade III diastolic dysfunction. 6. Probable small apical thrombus noted although not definitive and could be related to trabeculation. 7. Left atrial chamber dimension is mildly enlarged. 8. Right atrial chamber dimension is mildly enlarged. 9. There is moderate aortic valve sclerosis. 10. There is mild mitral valve regurgitation. 11. There is mild aortic valve calcification. 12. There is mild to moderate tricuspid valve regurgitation. 13. Mild pulmonary hypertension, estimated pulmonary arterial systolic pressure is 43 mmHg. * 05/24 stopped Florinef and IVF * IV furosemide 40mg iv bid 05/24 --> diuresed net -3370 ml * 05/24 Carvedilol 3.125mg PO q 12 hours * 05/25 Valsartan 20mg daily, furosemide decr to 20mg iv bid * Cardiology evaluation (2) Abnormal chest x-ray: Code(s): R93.89 - Abnormal findings on diagnostic imaging of other specified body structures Status: Acute Assessment and Plan: * Clinically this is CHF and not CAP * Stopped azithromycin and ceftriaxone on 05/24 * See above (3) UTI (urinary tract infection): Qualifiers: Urinary tract infection type: site unspecified Hematuria presence: without hematuria Qualified Code(s): N39.0 - Urinary tract infection, site not specified Code(s): N39.0 - Urinary tract infection, site not specified Status: Acute Assessment and Plan: * Culture with Enterococcus, likely due to catheter * Removal of catheter would be ideal * IV Unasy, switched to ampicillin 05/25 DAY #2 (4) HTN (hypertension) with goal to be determined: Code(s): I10 - Essential (primary) hypertension Status: Chronic Assessment and Plan: * Antihypertensives were on hold * 05/24 BP 152/71, so stopped florinef and fluids; treat CHF * 05/24 added carvedilol, 05/25 added valsartan (5) Lung mass: Code(s): R91.8 - Other nonspecific abnormal finding of lung field Status: Chronic Assessment and Plan: * CT CHEST AND ABDOMEN: 1. 6.5 x 3.5 cm right lung upper lobe mass, stable from 08/08/2008, likely benign. 2. Mild pulmonary edema. 3. Moderate-sized right and small left pleural effusions. 4. Bladder stones. Diffuse bladder wall thickening may be secondary to cystitis or chronic outlet obstruction. * F/u with PCP (6) COPD (chronic obstructive pulmonary disease): Qualifiers: COPD type: unspecified COPD Qualified Code(s): J44.9 - Chronic obstructive pulmonary disease, unspecified Code(s): J44.9 - Chronic obstructive pulmonary disease, unspecified Status: Chronic Assessment and Plan: * No sign of acute bronchospasm * Continue home meds (7) Urinary retention: Code(s): R33.9 - Retention of urine, unspecified Status: Acute Assessment and Plan: * Patient had a indwelling suprapubic catheter * Urology following (8) Depression: Qualifiers: Depression Type: unspecified Qualified Code(s): F32.9 - Major depressive di
--- NOTE | 2020-05-25 10:42 | PM.IMPN ---
Progress Note: A&P Assessment and Plan (1) Acute on chronic systolic (congestive) heart failure: Code(s): I50.23 - Acute on chronic systolic (congestive) heart failure Status: Acute Assessment and Plan: Echo 05/22: Summary 1. Left ventricular chamber dimension is mildly enlarged. 2. Left ventricular systolic function is severely reduced, estimated at 20-25%. 3. There is mildly increased left ventricular wall thickness. 4. Left ventricular septal wall motion is abnormal with septal motion related to pacing. 5. The left ventricular diastolic function is grade III diastolic dysfunction. 6. Probable small apical thrombus noted although not definitive and could be related to trabeculation. 7. Left atrial chamber dimension is mildly enlarged. 8. Right atrial chamber dimension is mildly enlarged. 9. There is moderate aortic valve sclerosis. 10. There is mild mitral valve regurgitation. 11. There is mild aortic valve calcification. 12. There is mild to moderate tricuspid valve regurgitation. 13. Mild pulmonary hypertension, estimated pulmonary arterial systolic pressure is 43 mmHg. 05/24 stopped Florinef and IVF IV furosemide 40mg iv bid 05/24 --> diuresed net -3370 ml 05/24 Carvedilol 3.125mg PO q 12 hours 05/25 Valsartan 20mg daily, furosemide decr to 20mg iv bid Cardiology evaluation (2) Abnormal chest x-ray: Code(s): R93.89 - Abnormal findings on diagnostic imaging of other specified body structures Status: Acute Assessment and Plan: Clinically this is CHF and not CAP Stopped azithromycin and ceftriaxone on 05/24 See above (3) UTI (urinary tract infection): Qualifiers: Urinary tract infection type: site unspecified Hematuria presence: without hematuria Qualified Code(s): N39.0 - Urinary tract infection, site not specified Code(s): N39.0 - Urinary tract infection, site not specified Status: Acute Assessment and Plan: Culture with Enterococcus, likely due to catheter Removal of catheter would be ideal IV Unasy, switched to ampicillin 05/25 DAY #2 (4) HTN (hypertension) with goal to be determined: Code(s): I10 - Essential (primary) hypertension Status: Chronic Assessment and Plan: Antihypertensives were on hold 05/24 BP 152/71, so stopped florinef and fluids; treat CHF 05/24 added carvedilol, 05/25 added valsartan (5) Lung mass: Code(s): R91.8 - Other nonspecific abnormal finding of lung field Status: Chronic Assessment and Plan: CT CHEST AND ABDOMEN: 1. 6.5 x 3.5 cm right lung upper lobe mass, stable from 08/08/2008, likely benign. 2. Mild pulmonary edema. 3. Moderate-sized right and small left pleural effusions. 4. Bladder stones. Diffuse bladder wall thickening may be secondary to cystitis or chronic outlet obstruction. F/u with PCP (6) COPD (chronic obstructive pulmonary disease): Qualifiers: COPD type: unspecified COPD Qualified Code(s): J44.9 - Chronic obstructive pulmonary disease, unspecified Code(s): J44.9 - Chronic obstructive pulmonary disease, unspecified Status: Chronic Assessment and Plan: No sign of acute bronchospasm Continue home meds (7) Urinary retention: Code(s): R33.9 - Retention of urine, unspecified Status: Acute Assessment and Plan: Patient had a indwelling suprapubic catheter Urology following (8) Depression: Qualifiers: Depression Type: unspecified Qualified Code(s): F32.9 - Major depressive disorder, single episode, unspecified Code(s): F32.9 - Major depressive disorder, single episode, unspecified Status: Chronic Assessment and Plan: Continue citalopram (9) Orthostatic hypotension: Code(s): I95.1 - Orthostatic hypotension Status: Chronic Assessment and Plan: 05/24 florinef stopped (10) Gout: Qualifiers: Gout site: unspecified sit
[2020-05-25] MEDS: MAGNESIUM SULF 2 GM/WATER 50ML 2 GM/50 ML BAG IVPB (11:21)
[2020-05-25] MEDS: TOLNAFTATE 1% POWDER 45 GM BTL 1 APPLIC TOPICAL ×2 (11:21→20:52)
[2020-05-25] MEDS: AMPICILLIN 1 GM/NS 50 ML 1 GM/50 ML BAG IVPB ×3 (12:26→23:46)
[2020-05-25] MEDS: VALSARTAN 20 MG TABLET PO (13:12)
--- NOTE | 2020-05-25 16:01 | PCOTNOTE ---
Pt was not able to be seen today for OT tx. Will continue per POC duration and frequency tomorrow.
[2020-05-25] MEDS: FUROSEMIDE INJ 40 MG/4 ML VIAL 20 MG IV PUSH (17:59)
[2020-05-25] MEDS: PRAMIPEXOLE 0.125 MG TABLET PO (20:52)
[2020-05-25] MEDS: CINACALCET 30 MG TABLET PO (20:52)
[2020-05-26] VITALS (16 sets, daily range): BP systolic 109–143; BP diastolic 58–89; PULSE 79–98; RESP 16–25; TEMP 36.1–36.7; O2SAT 94–98
[2020-05-26 06:17] LABS: Anion Gap 7 mmol/L (8-16); Blood Urea Nitrogen 25 mg/dL (9-20); Calcium 7.5 mg/dL (8.4-10.2); Carbon Dioxide 35 mmol/L (22-30); Chloride 95 mmol/L (98-107); Estimated CRCL calculation 75 ml/min; Estimated Glomerular Filt Rate > 60; Glucose 93 mg/dL (75-110); Magnesium 1.7 mg/dL (1.6-2.3); Sodium 137 mmol/L (137-145)
[2020-05-26] MEDS: AMPICILLIN 1 GM/NS 50 ML 1 GM/50 ML BAG IVPB ×3 (06:33→17:30)
[2020-05-26] MEDS: gemfibroziL 600 MG TABLET PO (06:33)
[2020-05-26 07:00] LABS: Potassium 3.9 mmol/L (3.4-5.0)
[2020-05-26] MEDS: FLUTICASONE PROPIONATE 0.05% NA SPR 16 GM BTL (*BKC) 1 SPRAY NASAL ×2 (08:08→17:31)
[2020-05-26] MEDS: carvediloL 3.125 MG TABLET PO ×2 (08:09→21:10)
[2020-05-26] MEDS: POTASSIUM CHLORIDE 20 MEQ TABLET.ER PO ×2 (08:09→17:30)
[2020-05-26] MEDS: allopurinoL 300 MG TABLET PO (08:10)
[2020-05-26] MEDS: calcitrioL 0.25 MCG CAPSULE PO (08:10)
[2020-05-26] MEDS: CITALOPRAM HYDROBROMIDE 10 MG TABLET PO (08:10)
[2020-05-26] MEDS: ASPIRIN 81 MG CHEWABLE TABLET PO (08:10)
[2020-05-26] MEDS: PANTOPRAZOLE 40 MG TABLET PO (08:11)
[2020-05-26] MEDS: FUROSEMIDE INJ 40 MG/4 ML VIAL 20 MG IV PUSH ×2 (08:11→17:29)
[2020-05-26] MEDS: TOLNAFTATE 1% POWDER 45 GM BTL 1 APPLIC TOPICAL ×2 (08:12→21:11)
[2020-05-26] MEDS: VALSARTAN 20 MG TABLET PO (08:36)
--- NOTE | 2020-05-26 11:47 | PM.PNCARD ---
Progress Note: A&P Assessment and Plan (1) Acute on chronic systolic (congestive) heart failure: Code(s): I50.23 - Acute on chronic systolic (congestive) heart failure Status: Acute Assessment and Plan: He seems to be better since admission, No more crackles, he is diuresing well with current medications, agree with Lasix is already on valsartan and Coreg, agree with that, his echocardiogram showed suspected apical thrombus, but does not seem to be actual thrombus no need for anticoagulation at this time based on that (2) Hyperlipidemia: Qualifiers: Hyperlipidemia type: unspecified Qualified Code(s): E78.5 - Hyperlipidemia, unspecified Code(s): E78.5 - Hyperlipidemia, unspecified Status: Chronic (3) HTN (hypertension) with goal to be determined: Code(s): I10 - Essential (primary) hypertension Status: Chronic Assessment and Plan: seems to be well controlled now continue with valsartan and Coreg (4) Ischemic cardiomyopathy with implantable cardioverter-defibrillator (ICD): Code(s): I25.5 - Ischemic cardiomyopathy; Z95.810 - Presence of automatic (implantable) cardiac defibrillator Status: Acute Assessment and Plan: He has severe left ventricular systolic dysfunction, and he has ICD, seems to have mild decompensation, which is getting better since admission, agree with Lasix p.o. and valsartan, will continue to watch input and outputs closely. Additional Plan Subjective Date/time seen: 05/26/20 11:47 He feels slightly better today, complained of abdominal indigestion but shortness breath is better leg swelling is much better and orthopnea is better no chest pain. Exam Narrative: Exam Narrative: Awake alert oriented x3 not in acute distress Neck is supple no obvious JVD, no carotid bruit Chest: bilateral basilar crackles noted Cardiovascular: Regular rate and rhythm, 2/6 systolic murmur noted left sternal border Abdomen: Soft nontender bowel sounds positive Extremities: trace edema noted, decreased pulses distally bilaterally noted Objective Data Vital Signs Vital Signs: Vital Signs - 24 hr 05/25/20 12:00 05/25/20 14:00 05/25/20 16:00 Temperature 36.4 C Pulse Rate 83 85 82 Respiratory Rate 20 Blood Pressure 148/52 H Pulse Oximetry 96 05/25/20 20:00 05/25/20 20:52 05/25/20 21:34 Temperature 36.8 C Pulse Rate 81 82 105 H Respiratory Rate 18 Blood Pressure 124/60 Pulse Oximetry 96 05/25/20 23:10 05/26/20 00:00 05/26/20 02:40 Temperature Pulse Rate 81 79 79 Respiratory Rate 18 18 Blood Pressure Pulse Oximetry 95 94 05/26/20 04:00 05/26/20 06:00 05/26/20 08:00 Temperature 36.7 C Pulse Rate 79 98 81 Respiratory Rate 18 Blood Pressure 127/63 Pulse Oximetry 97 05/26/20 08:09 Temperature Pulse Rate 81 Respiratory Rate Blood Pressure Pulse Oximetry Intake/Output Intake/Output: Intake & Output 05/23/20 05/24/20 05/25/20 05/26/20 23:59 23:59 23:59 23:59 Intake Total 4250 4720 1910 420 Output Total 3175 1350 3650 1700 Balance 1075 0458 -8334 -3715 Meds/Results Medications: Active Medications Generic Name Dose Route Start Last Admin Trade Name Freq PRN Reason Stop Dose Admin Hydrocodone Bitart/Acetaminophen 1 tab 05/22/20 00:19 05/25/20 20:55 [place] 7.5-325 Mg PO 1 tab Q6H PRN Administration Pain Rated 4-6 Albuterol 2 puff 05/22/20 00:13 Proventil Hfa INHALATION QIDRT PRN Shortness Of Breath Allopurinol 300 mg 05/22/20 08:00 05/26/20 08:10 Zyloprim PO 300 mg DAILY@0800 CONNIE Administration Aspirin 81 mg 05/22/20 08:00 05/26/20 08:10 Aspirin Chewable PO 81 mg DAILY@0800 CONNIE Administration Calcitriol 0.25 mcg 05/22/20 09:00 05/26/20 08:10 Rocaltrol PO 0.25 mcg DAILY CONNIE Administration Carvedilol 3.125 mg 05/24/20 21:00 05/26/20 08:09 Coreg PO 3.125 mg Q12HR CONNIE Administration
--- NOTE | 2020-05-26 15:49 | PM.IMPN ---
Progress Note: A&P Assessment and Plan (1) Acute on chronic systolic (congestive) heart failure: Code(s): I50.23 - Acute on chronic systolic (congestive) heart failure Status: Acute Assessment and Plan: Patient edematous and short of breath. BNP was elevated at 9950. Echo performed on 05/22 showed severely reduced EF 20-25% with abnormal wall motion secondary to pacing, grade 3 diastolic dysfunction, and probable small epical thrombus, mild MR and TR. He recently had ICD placed at [facility]. Pulmonary edema and small pleural effusions noted on CT. Continue 20 mg IV Lasix b.i.d. He was started on carvedilol 3.125 mg p.o. q.12 hours and valsartan 20 mg daily Monitor I&O and daily weights; heart healthy diet Cardiology has been consulted and recommendations are appreciated (2) Abnormal chest x-ray: Code(s): R93.89 - Abnormal findings on diagnostic imaging of other specified body structures Status: Acute Assessment and Plan: Initial chest x-ray was suggestive of pneumonia. Clinical picture and repeat imaging is more consistent with CHF exacerbation. Stopped azithromycin and ceftriaxone on 05/24. Patient is afebrile and without leukocytosis. No additional signs or symptoms of infection. Shortness of breath and cough have improved with diuresis. (3) UTI (urinary tract infection): Qualifiers: Urinary tract infection type: site unspecified Hematuria presence: without hematuria Qualified Code(s): N39.0 - Urinary tract infection, site not specified Code(s): N39.0 - Urinary tract infection, site not specified Status: Acute Assessment and Plan: Culture with Enterococcus, likely due to catheter which has been initiated for urinary retention. IV Unasy, switched to ampicillin 05/25 day #2 based on sensitivities He has been seen in consultation by Urology who recommend continuation of Lee catheter until follow-up on 05/30/2020 to discuss SP tube placement. (4) Orthostatic hypotension: Code(s): I95.1 - Orthostatic hypotension Status: Chronic Assessment and Plan: Patient was initially orthostatic and was started on Florinef and IV fluids. Florinef was discontinued on 05/24 given elevation of blood pressures. Patient has not been orthostatic since discontinuation. IV fluids have been discontinued due to CHF exacerbation. Continue to monitor orthostatics each shift (5) HTN (hypertension) with goal to be determined: Code(s): I10 - Essential (primary) hypertension Status: Chronic Assessment and Plan: Antihypertensives were on hold while patient was being treated for orthostasis. Blood pressure reviewed today and have been well controlled in the 120s systolic. Florinef and IV fluids discontinued as above carvedilol was initiated on 05/24. Valsartan initiated on 05/25. Continue both. 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 F/u with PCP (7) COPD (chronic obstructive pulmonary disease): Qualifiers: COPD type: unspecified COPD Qualified Code(s): J44.9 - Chronic obstructive pulmonary disease, unspecified Code(s): J44.9 - Chronic obstructive pulmonary disease, unspecified Status: Chronic Assessment and Plan: No sign of acute bronchospasm. Maintaining adequate oxygenation on room air. Continue prn albuterol (8) Urinary retention: Code(s): R33.9 - Retention of urine, unspecified Status: Acute Assessment and Plan: He has been seen in consultation by urology who recommends continuation of Lee catheter as noted above. Outpatient follow-up has been scheduled 05/30/2020 (9) Depression: Qualifiers: Depression Type: unsp
[2020-05-26] MEDS: PRAMIPEXOLE 0.125 MG TABLET PO (21:10)
[2020-05-26] MEDS: CINACALCET 30 MG TABLET PO (21:11)
[2020-05-27] VITALS (16 sets, daily range): BP systolic 66–148; BP diastolic 39–67; PULSE 79–83; RESP 14–21; TEMP 36–36.2; O2SAT 93–98
[2020-05-27] MEDS: gemfibroziL 600 MG TABLET PO (05:37)
[2020-05-27] MEDS: AMPICILLIN 1 GM/NS 50 ML 1 GM/50 ML BAG IVPB ×4 (05:37→18:18)
[2020-05-27 05:41] LABS: Hemoglobin 11.7 g/dL (14.0-18.0); Mean Corpuscular HGB Conc 31.6 g/dl (32-36); Mean Corpuscular Volume 88.5 fl (80-100); Mean Platelet Volume 11.5 fl (7.4-10.4); Platelet Count Result 265 k/mm3 (150-375); Red Blood Count 4.18 M/mm3 (4.6-6.20); Red Cell Distribution Width 15.4 % (11.5-14.5); White Blood Count 6.8 K/mm3 (4.5-10.0)
[2020-05-27 05:56] LABS: Alanine Aminotransferase 7 U/L (4-50); Albumin Level 3.1 g/dL (3.5-5.1); Alkaline Phosphatase 104 U/L (38-126); Anion Gap 5 mmol/L (8-16); Aspartate Amino Transferase 12 U/L (17-59); Bilirubin,Total 0.4 mg/dL (0.2-1.3); Blood Urea Nitrogen 26 mg/dL (9-20); Calcium 7.7 mg/dL (8.4-10.2); Carbon Dioxide 36 mmol/L (22-30); Chloride 94 mmol/L (98-107); Estimated CRCL calculation 70 ml/min; Estimated Glomerular Filt Rate > 60; Glucose 93 mg/dL (75-110); Potassium 3.7 mmol/L (3.4-5.0); Sodium 135 mmol/L (137-145)
[2020-05-27] MEDS: POTASSIUM CHLORIDE 20 MEQ TABLET.ER PO ×2 (08:35→18:19)
[2020-05-27] MEDS: ASPIRIN 81 MG CHEWABLE TABLET PO (08:35)
[2020-05-27] MEDS: carvediloL 3.125 MG TABLET PO (08:36)
[2020-05-27] MEDS: CITALOPRAM HYDROBROMIDE 10 MG TABLET PO (08:36)
[2020-05-27] MEDS: PANTOPRAZOLE 40 MG TABLET PO (08:36)
[2020-05-27] MEDS: allopurinoL 300 MG TABLET PO (08:36)
[2020-05-27] MEDS: VALSARTAN 20 MG TABLET PO (08:36)
[2020-05-27] MEDS: calcitrioL 0.25 MCG CAPSULE PO (08:36)
[2020-05-27] MEDS: FLUTICASONE PROPIONATE 0.05% NA SPR 16 GM BTL (*BKC) 1 SPRAY NASAL ×2 (08:37→18:19)
[2020-05-27] MEDS: FUROSEMIDE INJ 40 MG/4 ML VIAL 20 MG IV PUSH (08:37)
[2020-05-27] MEDS: TOLNAFTATE 1% POWDER 45 GM BTL 1 APPLIC TOPICAL ×2 (08:38→21:51)
[2020-05-27] MEDS: ALBUTEROL SULFATE (*SP) AEROSOL 1 PUFF 2 PUFF INHALATION (09:12)
--- NOTE | 2020-05-27 14:27 | PM.PNCARD ---
Progress Note: A&P Assessment and Plan (1) Acute on chronic systolic (congestive) heart failure: Code(s): I50.23 - Acute on chronic systolic (congestive) heart failure Status: Acute Assessment and Plan: Net negative ~2 liters over the last 24 hours. Creatinine stable Continue current dose of IV lasix 40 BID for one more day and reassess tomorrow Continue valsartan and Coreg. 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 [facility] (3) HTN (hypertension) with goal to be determined: Code(s): I10 - Essential (primary) hypertension Status: Chronic Assessment and Plan: seems to be well controlled now continue with valsartan and Coreg Additional Plan Subjective Date/time seen: 05/27/20 14:27 Feels about the same compared to yesterday, better overall compared to admission Review of Systems Constitutional: Constitutional: Reports lethargy Cardiovascular: Cardiovascular: Reports as per HPI and Reports dyspnea Respiratory: Respiratory: Reports dyspnea Gastrointestinal: Gastrointestinal: Reports no additional gastrointestinal complaints Exam Narrative: Exam Narrative: Awake alert oriented x3 not in acute distress Neck is supple no obvious JVD, no carotid bruit Chest: bilateral basilar crackles noted Cardiovascular: Regular rate and rhythm, 2/6 systolic murmur noted left sternal border Abdomen: Soft nontender bowel sounds positive Extremities: trace edema noted, decreased pulses distally bilaterally noted Objective Data Vital Signs Vital Signs: Vital Signs - 24 hr 05/26/20 16:00 05/26/20 20:00 05/26/20 20:16 Temperature 36.1 C L Pulse Rate 79 86 88 Respiratory Rate 16 Blood Pressure 143/77 H Pulse Oximetry 98 05/26/20 20:25 05/26/20 20:33 05/26/20 21:10 Temperature Pulse Rate 89 Respiratory Rate Blood Pressure 113/58 L 109/89 Pulse Oximetry 05/26/20 21:38 05/27/20 00:00 05/27/20 00:05 Temperature Pulse Rate 92 79 79 Respiratory Rate 25 H 21 H Blood Pressure Pulse Oximetry 98 93 05/27/20 04:00 05/27/20 04:59 05/27/20 08:00 Temperature 36.2 C L Pulse Rate 79 80 79 Respiratory Rate 16 Blood Pressure 148/67 H Pulse Oximetry 95 05/27/20 08:36 05/27/20 12:00 05/27/20 14:00 Temperature 36.0 C L Pulse Rate 79 79 79 Respiratory Rate 20 Blood Pressure 106/54 L Pulse Oximetry 94 Intake/Output Intake/Output: Intake & Output 05/24/20 05/25/20 05/26/20 05/27/20 23:59 23:59 23:59 23:59 Intake Total 4720 1910 1890 1220 Output Total 1350 3650 3050 3150 Balance 8318 -9614 -4079 -6332 Meds/Results Medications: Active Medications Generic Name Dose Route Start Last Admin Trade Name Freq PRN Reason Stop Dose Admin Hydrocodone Bitart/Acetaminophen 1 tab 05/22/20 00:19 05/27/20 10:07 [place] 7.5-325 Mg PO 1 tab Q6H PRN Administration Pain Rated 4-6 Albuterol 2 puff 05/22/20 00:13 05/27/20 09:12 Proventil Hfa INHALATION 2 puff QIDRT PRN Administration Shortness Of Breath Allopurinol 300 mg 05/22/20 08:00 05/27/20 08:36 Zyloprim PO 300 mg DAILY@0800 CONNIE Administration Aspirin 81 mg 05/22/20 08:00 05/27/20 08:35 Aspirin Chewable PO 81 mg DAILY@0800 CONNIE Administration Calcitriol 0.25 mcg 05/22/20 09:00 05/27/20 08:36 Rocaltrol PO 0.25 mcg DAILY CONNIE Administration Carvedilol 3.125 mg 05/24/20 21:00 05/27/20 08:36 Coreg PO 3.125 mg Q12HR CONNIE Administration Cinacalcet 30 mg 05/22/20 21:00 05/26/20 21:11 Sensipar PO 30 mg HS CONNIE Adm
--- NOTE | 2020-05-27 15:32 | PM.IMPN ---
Progress Note: A&P Assessment and Plan (1) Acute on chronic systolic (congestive) heart failure: Code(s): I50.23 - Acute on chronic systolic (congestive) heart failure Status: Acute Assessment and Plan: Patient was noted to be edematous and short of breath. BNP was elevated at 9950. Echo performed on 05/22 showed severely reduced EF 20-25% with abnormal wall motion secondary to pacing, grade 3 diastolic dysfunction, and possible small apical thrombus, mild MR and TR. He recently had ICD placed at [facility]. Pulmonary edema and small pleural effusions were noted on CT. He has improved with diuresis and urine output is excellent. Cardiology is on board. Hold lasix for tonight due to orthostasis. Continue carvedilol and valsartan. Continue to monitor strict I&O, daily weights, and heart healthy diet. Appreciate cardiology input. Cardiology does not recommend anticoagulation for the apical thrombus as it appears chronic. (2) Abnormal chest x-ray: Code(s): R93.89 - Abnormal findings on diagnostic imaging of other specified body structures Status: Acute Assessment and Plan: Initial chest x-ray was suggestive of pneumonia. Clinical picture and repeat imaging is more consistent with CHF exacerbation. Azithromycin and ceftriaxone were discontinued on 05/24. Patient is afebrile and without leukocytosis. No additional signs or symptoms of infection. Shortness of breath and cough have improved with diuresis. (3) UTI (urinary tract infection): Qualifiers: Hematuria presence: without hematuria Urinary tract infection type: site unspecified Qualified Code(s): N39.0 - Urinary tract infection, site not specified Code(s): N39.0 - Urinary tract infection, site not specified Status: Acute Assessment and Plan: Culture with Enterococcus, likely due to catheter which has been initiated for urinary retention. IV Unasyn 05/24, switched to ampicillin 05/25 based on sensitivities (Day 3 today based on sensitivities). Plan to treat with ampicillin for 5 days. He has been seen in consultation by Urology who recommend continuation of Lee catheter until follow-up on 05/30/2020 to discuss SP tube placement. (4) Orthostatic hypotension: Code(s): I95.1 - Orthostatic hypotension Status: Chronic Assessment and Plan: The patient has a hx of orthostatic hypotension and was on fludrocortisone prior to admission. He received IV fluid rehydration initially during this admission. IV fluids were discontinued due to CHF exacerbation. He was profoundly orthostatic today and symptomatic with lightheadedness with standing. Cardiology is on board. Cardiology has recommended that we hold lasix. Apply MARY KAY hose. Will await further cardiology recommendations. Midodrine may be an additional option due to potential for ADRs from fludrocortisone given underlying CHF. Continue to monitor orthostatic BP. Continue fall precautions. (5) HTN (hypertension) with goal to be determined: Code(s): I10 - Essential (primary) hypertension Status: Chronic Assessment and Plan: Antihypertensives were on hold while patient was being treated for orthostasis. Carvedilol was initiated on 05/24 and valsartan was initiated on 05/25. Fludrocortisone was discontinued to due HTN, CHF exacerbation, and edema. He is now orthostatic. Cardiology is on board. Management per cardiology. Cardiology has recommended to hold lasix for tonight. Continue to monitor closely with plan for orthostasis as above. 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 Continue follow-up with with PCP outpatient for monitoring. (7) COPD (chronic obstructive pulmonary disease): Qualifiers: COPD type: unspeci
[2020-05-27] MEDS: CINACALCET 30 MG TABLET PO (21:51)
[2020-05-27] MEDS: PRAMIPEXOLE 0.125 MG TABLET PO (21:51)
[2020-05-28] VITALS (12 sets, daily range): BP systolic 97–140; BP diastolic 59–72; PULSE 72–80; RESP 12–18; TEMP 35.8–36.7; O2SAT 95–99
[2020-05-28] MEDS: AMPICILLIN 1 GM/NS 50 ML 1 GM/50 ML BAG IVPB ×3 (00:29→11:33)
[2020-05-28] MEDS: gemfibroziL 600 MG TABLET PO (05:30)
[2020-05-28 05:31] LABS: Hematocrit 35.8 % (42.0-52.0); Hemoglobin 11.3 g/dL (14.0-18.0); Mean Corpuscular HGB Conc 31.6 g/dl (32-36); Mean Corpuscular Hemoglobin 28.1 pg (26-34); Mean Corpuscular Volume 89.1 fl (80-100); Mean Platelet Volume 11.6 fl (7.4-10.4); Platelet Count Result 274 k/mm3 (150-375); Red Blood Count 4.02 M/mm3 (4.6-6.20); Red Cell Distribution Width 15.1 % (11.5-14.5); White Blood Count 6.5 K/mm3 (4.5-10.0)
[2020-05-28 05:44] LABS: Rheumatoid Factor < 8.6 IU/ML (<12)
[2020-05-28 05:48] LABS: Anion Gap 5 mmol/L (8-16); Blood Urea Nitrogen 30 mg/dL (9-20); Calcium 7.7 mg/dL (8.4-10.2); Carbon Dioxide 35 mmol/L (22-30); Chloride 95 mmol/L (98-107); Estimated CRCL calculation 70 ml/min; Estimated Glomerular Filt Rate > 60; Glucose 98 mg/dL (75-110); Magnesium 1.8 mg/dL (1.6-2.3); Potassium 4.1 mmol/L (3.4-5.0); Sodium 135 mmol/L (137-145); Uric Acid 5.2 mg/dL (3.5-8.5)
[2020-05-28] MEDS: allopurinoL 300 MG TABLET PO (09:37)
[2020-05-28] MEDS: calcitrioL 0.25 MCG CAPSULE PO (09:37)
[2020-05-28] MEDS: POTASSIUM CHLORIDE 20 MEQ TABLET.ER PO ×2 (09:37→18:01)
[2020-05-28] MEDS: ASPIRIN 81 MG CHEWABLE TABLET PO (09:37)
[2020-05-28] MEDS: VALSARTAN 20 MG TABLET PO (09:38)
[2020-05-28] MEDS: carvediloL 3.125 MG TABLET PO ×2 (09:38→22:12)
[2020-05-28] MEDS: PANTOPRAZOLE 40 MG TABLET PO (09:38)
[2020-05-28] MEDS: CITALOPRAM HYDROBROMIDE 10 MG TABLET PO (09:38)
[2020-05-28] MEDS: FLUTICASONE PROPIONATE 0.05% NA SPR 16 GM BTL (*BKC) 1 SPRAY NASAL ×2 (09:39→18:01)
[2020-05-28] MEDS: TOLNAFTATE 1% POWDER 45 GM BTL 1 APPLIC TOPICAL ×2 (09:39→22:13)
--- NOTE | 2020-05-28 09:45 | PM.PNCARD ---
Progress Note: A&P Assessment and Plan (1) Acute on chronic systolic (congestive) heart failure: Code(s): I50.23 - Acute on chronic systolic (congestive) heart failure Status: Acute Assessment and Plan: Diuresed well. Net negative ~ 1.5 liter over the last 24 hours and 2 liters the day before. Creatinine stable. 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 Lasix was held. Supine BP is 125/70 this am. Still with some dyspnea though improved compared to admission. Admits to dizziness when he gets up. Review of Systems Constitutional: Constitutional: Reports lethargy Cardiovascular: Cardiovascular: Reports as per HPI and Reports dyspnea Respiratory: Respiratory: Reports dyspnea Gastrointestinal: Gastrointestinal: Reports no additional gastrointestinal complaints Exam Narrative: Exam Narrative: Awake alert oriented x3 not in acute distress Neck is supple no obvious JVD, no carotid bruit Chest: bilateral basilar crackles noted Cardiovascular: Regular rate and rhythm, 2/6 systolic murmur noted left sternal border Abdomen: Soft nontender bowel sounds positive Extremities: trace edema noted, decreased pulses distally bilaterally noted Objective Data Vital Signs Vital Signs: Vital Signs - 24 hr 05/27/20 12:00 05/27/20 14:00 05/27/20 14:23 Temperature 36.0 C L Pulse Rate 79 79 80 Respiratory Rate 20 Blood Pressure 106/54 L 99/48 L Pulse Oximetry 94 96 05/27/20 14:26 05/27/20 16:00 05/27/20 20:00 Temperature Pulse Rate 81 83 79 Respiratory Rate Blood Pressure 66/39 L Pulse Oximetry 98 05/27/20 21:19 05/27/20 21:28 05/27/20 21:32 Temperature 36.1 C L Pulse Rate 79 Respiratory Rate 14 Blood Pressure 127/55 L 109/53 L 84/55 L Pulse Oximetry 98 05/27/20 23:53 05/28/20 00:00 05/28/20 04:02 Temperature Pulse Rate 79 79 Respiratory Rate Blood Pressure 120/55 L Pulse Oximetry 05/28/20 05:15 05/28/20 08:00 05/28/20 09:38 Temperature 36.2 C L Pulse Rate 80 79 79 Respiratory Rate 16 Blood Pressure 127/60 Pulse Oximetry 97 Intake/Output Intake/Output: Intake & Output 05/25/20 05/26/20 05/27/20 05/28/20 23:59 23:59 23:59 23:59 Intake Total 1910 1890 2060 760 Output Total 3650 3050 3600 950 [facility] -1740 -1160 -1540 -190 Meds/Results Medications: Active Medications Generic Name Dose Route Start Last Admin Trade Name Freq PRN Reason Stop Dose Admin Hydrocodone Bitart/Acetaminophen 1 tab 05/22/20 00:19 05/27/20 10:07 [place] 7.5-325 Mg PO 1 tab Q6H PRN Administration Pain Rated 4-6 Albuterol 2 puff 05/22/20 00:13 05/27/20 09:12 Proventil Hfa INHALATION 2 puff QIDRT PRN Administration Shortness Of Breath Allopurinol 300 mg 05/22/20 08:00 05/28/20 09:37 Zyloprim PO 300 mg DAILY@0800 [facility] Administration Aspirin 81 mg 05/22/20 08:00 05/28/20 09:37 Aspirin Chewable PO 81 mg DAILY@0800 CONNIE Administration Calcitriol 0.25 mcg
--- NOTE | 2020-05-28 14:41 | PM.IMPN ---
Progress Note: A&P Assessment and Plan (1) Acute on chronic systolic (congestive) heart failure: Code(s): I50.23 - Acute on chronic systolic (congestive) heart failure Status: Acute Assessment and Plan: Patient was noted to be edematous and short of breath. BNP was elevated at 9950. Echo performed on 05/22 showed severely reduced EF 20-25% with abnormal wall motion secondary to pacing, grade 3 diastolic dysfunction, and possible small apical thrombus, mild MR and TR. He recently had ICD placed at [facility]. Pulmonary edema and small pleural effusions were noted on CT. He has improved with diuresis and urine output is excellent. Cardiology is on board. Lasix is on hold since the evening of 05/27 due to orthostasis. Continue carvedilol and valsartan. Continue to monitor strict I&O, daily weights, and heart healthy diet. Appreciate cardiology input. Cardiology does not recommend anticoagulation for the apical thrombus as it appears chronic. (2) Abnormal chest x-ray: Code(s): R93.89 - Abnormal findings on diagnostic imaging of other specified body structures Status: Acute Assessment and Plan: Initial chest x-ray was suggestive of pneumonia. Clinical picture and repeat imaging is more consistent with CHF exacerbation. Azithromycin and ceftriaxone were discontinued on 05/24. Patient is afebrile and without leukocytosis. No additional signs or symptoms of infection. Shortness of breath and cough have improved with diuresis. (3) UTI (urinary tract infection): Qualifiers: Urinary tract infection type: site unspecified Hematuria presence: without hematuria Qualified Code(s): N39.0 - Urinary tract infection, site not specified Code(s): N39.0 - Urinary tract infection, site not specified Status: Acute Assessment and Plan: Culture with Enterococcus, likely due to catheter which has been initiated for urinary retention. IV Unasyn 05/24, switched to ampicillin 05/25 based on sensitivities (Day 4 today based on sensitivities). Plan to treat with ampicillin for 5 days total. Will switch to PO ampicillikn today. He was been seen in consultation by Urology who recommend continuation of Lee catheter until follow-up on 05/30/2020 to discuss SP tube placement. (4) Orthostatic hypotension: Code(s): I95.1 - Orthostatic hypotension Status: Chronic Assessment and Plan: The patient has a hx of orthostatic hypotension and was on fludrocortisone prior to admission. He received IV fluid rehydration initially during this admission. IV fluids were discontinued due to CHF exacerbation. He was profoundly orthostatic 05/27 and remains orthostatic today. Orthostatic BP has improved but he is still symptomatic with lightheadedness with standing. Cardiology is on board. Cardiology has recommended that we hold lasix. Continue MARY KAY hose. I discussed midodrine vs. fludrocortisone with Dr. Alexander. Due to concerns for underlying CHF, he would like to hold on adding additional agents that will retain fluid/increase BP and may decrease his other antihypertensives if orthostatic readings do not improve with holding lasix. Continue to monitor orthostatic BP. Continue fall precautions. (5) HTN (hypertension) with goal to be determined: Code(s): I10 - Essential (primary) hypertension Status: Chronic Assessment and Plan: Blood pressures were reviewed and are reasonably controlled today although he remains orthostatic with plan as above. Carvedilol was initiated on 05/24 and valsartan was initiated on 05/25. Appreciate cardiology input. Cardiology may decrease his antihypertensives tomorrow if his orthostasis does not improve with holding diuretics. 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
[2020-05-28] MEDS: AMPICILLIN TRIHYDRATE 500 MG CAPSULE PO ×2 (18:02→23:00)
[2020-05-28] MEDS: CINACALCET 30 MG TABLET PO (22:12)
[2020-05-28] MEDS: PRAMIPEXOLE 0.125 MG TABLET PO (22:12)
[2020-05-29] VITALS (16 sets, daily range): BP systolic 95–129; BP diastolic 46–79; PULSE 70–88; RESP 16–20; TEMP 35.7–36.1; O2SAT 92–97
[2020-05-29] MEDS: gemfibroziL 600 MG TABLET PO (05:50)
[2020-05-29] MEDS: AMPICILLIN TRIHYDRATE 500 MG CAPSULE PO ×2 (05:51→12:39)
[2020-05-29 05:59] LABS: Hematocrit 37.2 % (42.0-52.0); Hemoglobin 11.7 g/dL (14.0-18.0); Mean Corpuscular HGB Conc 31.5 g/dl (32-36); Mean Corpuscular Hemoglobin 28.1 pg (26-34); Mean Corpuscular Volume 89.4 fl (80-100); Mean Platelet Volume 11.2 fl (7.4-10.4); Platelet Count Result 256 k/mm3 (150-375); Red Blood Count 4.16 M/mm3 (4.6-6.20); Red Cell Distribution Width 15.2 % (11.5-14.5); White Blood Count 6.1 K/mm3 (4.5-10.0)
[2020-05-29 06:16] LABS: Anion Gap 3 mmol/L (8-16); Blood Urea Nitrogen 30 mg/dL (9-20); CRP 0.7 mg/dL (<1.0); Calcium 7.9 mg/dL (8.4-10.2); Carbon Dioxide 37 mmol/L (22-30); Chloride 95 mmol/L (98-107); Estimated CRCL calculation 70 ml/min; Estimated Glomerular Filt Rate > 60; Glucose 93 mg/dL (75-110); Potassium 4.6 mmol/L (3.4-5.0); Sodium 135 mmol/L (137-145)
[2020-05-29 07:15] LABS: Erythrocyte Sedimentation Rate 125 mm/hr (0-20)
[2020-05-29] MEDS: FUROSEMIDE 40 MG TABLET PO (08:46)
[2020-05-29] MEDS: ASPIRIN 81 MG CHEWABLE TABLET PO (08:46)
[2020-05-29] MEDS: VALSARTAN 20 MG TABLET PO (08:46)
[2020-05-29] MEDS: POTASSIUM CHLORIDE 20 MEQ TABLET.ER PO ×2 (08:47→16:52)
[2020-05-29] MEDS: calcitrioL 0.25 MCG CAPSULE PO (08:47)
[2020-05-29] MEDS: PANTOPRAZOLE 40 MG TABLET PO (08:47)
[2020-05-29] MEDS: carvediloL 3.125 MG TABLET PO ×2 (08:47→20:23)
[2020-05-29] MEDS: allopurinoL 300 MG TABLET PO (08:47)
[2020-05-29] MEDS: FLUTICASONE PROPIONATE 0.05% NA SPR 16 GM BTL (*BKC) 1 SPRAY NASAL ×2 (08:48→16:52)
[2020-05-29] MEDS: TOLNAFTATE 1% POWDER 45 GM BTL 1 APPLIC TOPICAL ×2 (08:48→20:24)
[2020-05-29] MEDS: CITALOPRAM HYDROBROMIDE 10 MG TABLET PO (08:48)
--- NOTE | 2020-05-29 13:56 | PM.PNCARD ---
Progress Note: A&P Assessment and Plan (1) Acute on chronic systolic (congestive) heart failure: Code(s): I50.23 - Acute on chronic systolic (congestive) heart failure Status: Acute Assessment and Plan: Diuresed well. Net negative ~ 1.5 liter over the last 24 hours and 2 liters the day before. Creatinine stable. 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 (2) Ischemic cardiomyopathy with implantable cardioverter-defibrillator (ICD): Code(s): I25.5 - Ischemic cardiomyopathy; Z95.810 - Presence of automatic (implantable) cardiac defibrillator Status: Acute Assessment and Plan: He has severe left ventricular systolic dysfunction s/p ICD Primary red hat open stack administrator Dr. Fernandez at [facility] (3) HTN (hypertension) with goal to be determined: Code(s): I10 - Essential (primary) hypertension Status: Chronic Assessment and Plan: As above Additional Plan Subjective Date/time seen: 05/29/20 13:56 he feels better today, shortness of breath is better no chest pain no dizziness Exam Narrative: Exam Narrative: Awake alert oriented x3 not in acute distress Neck is supple no obvious JVD, no carotid bruit Chest: bilateral basilar crackles noted Cardiovascular: Regular rate and rhythm, 2/6 systolic murmur noted left sternal border Abdomen: Soft nontender bowel sounds positive Extremities: trace edema noted, decreased pulses distally bilaterally noted Objective Data Vital Signs Vital Signs: Vital Signs - 24 hr 05/28/20 15:32 05/28/20 16:00 05/28/20 20:00 Temperature 36.7 C Pulse Rate 72 79 79 Respiratory Rate 12 Blood Pressure 140/66 122/59 L Pulse Oximetry 99 05/28/20 20:27 05/28/20 22:12 05/29/20 00:00 Temperature 35.8 C L Pulse Rate 77 77 79 Respiratory Rate 18 Blood Pressure 122/59 L Pulse Oximetry 95 05/29/20 04:00 05/29/20 05:56 05/29/20 08:00 Temperature 35.7 C L Pulse Rate 79 78 79 Respiratory Rate 20 Blood Pressure 102/49 L 124/55 L Pulse Oximetry 92 05/29/20 08:45 05/29/20 08:47 05/29/20 08:57 Temperature Pulse Rate 80 80 88 Respiratory Rate 20 Blood Pressure 112/79 Pulse Oximetry 92 05/29/20 08:58 05/29/20 12:00 Temperature Pulse Rate 80 81 Respiratory Rate Blood Pressure 111/50 L Pulse Oximetry Intake/Output Intake/Output: Intake & Output 05/26/20 05/27/20 05/28/20 05/29/20 23:59 23:59 23:59 23:59 Intake Total 1890 2060 2130 720 Output Total 3050 3600 1550 1400 Balance -1160 -1540 580 680 Meds/Results Medications: Active Medications Generic Name Dose Route Start Last Admin Trade Name Freq PRN Reason Stop Dose Admin Hydrocodone Bitart/Acetaminophen 1 tab 05/22/20 00:19 05/29/20 08:45 Morgan 7.5-325 Mg PO 1 tab Q6H PRN Administration Pain Rated 4-6 Albuterol 2 puff 05/22/20 00:13 05/27/20 09:12 Proventil Hfa INHALATION 2 puff QIDRT PRN Administration Shortness Of Breath Allopurinol 300 mg 05/22/20 08:00 05/29/20 08:47 Zyloprim PO 300 mg DAILY@0800 CONNIE Administration Aspirin 81 mg 05/22/20 08:00 05/29/20 08:46 Aspirin Chewable PO 81 mg DAILY@0800 CONNIE Administration Calcitriol 0.25 mcg 05/22/20 09:00 05/29/20 08:47 Rocaltrol PO 0.25 mcg DAILY CONNIE Administration Carvedilol 3.125 mg 05/24/20 21:00 05/29/20 08:47 Coreg PO 3.125 mg Q12HR CONNIE Administration Cinacalcet 30 mg 05/22/20 21:00 05/28/20 22:12 Sensipar PO 30 mg HS CONNIE Administration Citalopram Hydrobromide 10 mg 05/22/20 09:00 05/29/20 08:48 Celexa PO 10 mg DAILY CONNIE Administrat
--- NOTE | 2020-05-29 14:18 | PM.IMPN ---
Progress Note: A&P Assessment and Plan (1) Physical deconditioning: Code(s): R53.81 - Other malaise Status: Acute Assessment and Plan: I talked with the patient today and expressed that I think he needs to consider post-acute rehab to continue PT/OT. He is considering this. I spoke with Coretta with care coordination who will discuss this with him and look into options. (2) Acute on chronic systolic (congestive) heart failure: Code(s): I50.23 - Acute on chronic systolic (congestive) heart failure Status: Acute Assessment and Plan: Patient was noted to be edematous and short of breath. BNP was elevated at 9950. Echo performed on 05/22 showed severely reduced EF 20-25% with abnormal wall motion secondary to pacing, grade 3 diastolic dysfunction, and possible small apical thrombus, mild MR and TR. He recently had ICD placed at [facility]. Pulmonary edema and small pleural effusions were noted on CT. He has improved with diuresis and urine output is excellent. Cardiology is on board. Lasix is on hold since the evening of 05/27 due to orthostasis. Continue carvedilol and valsartan. Continue to monitor strict I&O, daily weights, and heart healthy diet. Appreciate cardiology input. Cardiology does not recommend anticoagulation for the apical thrombus as it appears chronic. (3) Abnormal chest x-ray: Code(s): R93.89 - Abnormal findings on diagnostic imaging of other specified body structures Status: Acute Assessment and Plan: Initial chest x-ray was suggestive of pneumonia. Clinical picture and repeat imaging is more consistent with CHF exacerbation. Azithromycin and ceftriaxone were discontinued on 05/24. Patient is afebrile and without leukocytosis. No additional signs or symptoms of infection. Shortness of breath and cough have improved with diuresis. (4) UTI (urinary tract infection): Qualifiers: Hematuria presence: without hematuria Urinary tract infection type: site unspecified Qualified Code(s): N39.0 - Urinary tract infection, site not specified Code(s): N39.0 - Urinary tract infection, site not specified Status: Acute Assessment and Plan: Culture with Enterococcus, likely due to catheter which has been initiated for urinary retention. IV Unasyn 05/24, switched to ampicillin 05/25 based on sensitivities (Day 01/21 today based on sensitivities). Stop ampicillin today. He was been seen in consultation by Urology who recommend continuation of Lee catheter until follow-up on 05/30/2020 to discuss SP tube placement. (5) Orthostatic hypotension: Code(s): I95.1 - Orthostatic hypotension Status: Chronic Assessment and Plan: The patient has a hx of orthostatic hypotension and was on fludrocortisone prior to admission. He received IV fluid rehydration initially during this admission. IV fluids were discontinued due to CHF exacerbation. He was profoundly orthostatic 05/27. Lasix was held and his orthostasis has improved. He notes he is no longer having dizziness with standing any longer.. Cardiology is on board. Continue MARY KAY hose. I discussed midodrine vs. fludrocortisone with Dr. Alexander. Due to concerns for underlying CHF, he would like to hold on adding additional agents that will retain fluid/increase BP. His orthostasis has improved significantly. Continue to monitor orthostatic BP. Continue fall precautions. (6) HTN (hypertension) with goal to be determined: Code(s): I10 - Essential (primary) hypertension Status: Chronic Assessment and Plan: Blood pressures were reviewed and are reasonably controlled today. His orthostatic BP readings have improved. Carvedilol was initiated on 05/24 and valsartan was initiated on 05/25. Appreciate cardiology input. continue antihypertensive. (7) Lung mass: Code(s): R91.8 - Other nonspecific abnormal finding of lung field Status: Chronic Assessment a
--- NOTE | 2020-05-29 14:31 | PC.NURSE ---
On 05/29/20, the student, [Jolie Ram ], provided care and completed [facility] documentation on this patient. I have reviewed the student's documentation and agree with the findings.
[2020-05-29] MEDS: CINACALCET 30 MG TABLET PO (20:23)
[2020-05-29] MEDS: PRAMIPEXOLE 0.125 MG TABLET PO (20:23)
[2020-05-30] VITALS (13 sets, daily range): BP systolic 97–135; BP diastolic 54–68; PULSE 79–96; RESP 12–18; TEMP 36.3–36.6; O2SAT 92–97
[2020-05-30] MEDS: gemfibroziL 600 MG TABLET PO (05:43)
[2020-05-30 08:09] LABS: Hematocrit 36.8 % (42.0-52.0); Hemoglobin 11.8 g/dL (14.0-18.0); Mean Corpuscular HGB Conc 32.1 g/dl (32-36); Mean Corpuscular Hemoglobin 28.6 pg (26-34); Mean Corpuscular Volume 89.1 fl (80-100); Mean Platelet Volume 11.5 fl (7.4-10.4); Platelet Count Result 242 k/mm3 (150-375); Red Blood Count 4.13 M/mm3 (4.6-6.20); Red Cell Distribution Width 15.2 % (11.5-14.5); White Blood Count 5.3 K/mm3 (4.5-10.0)
[2020-05-30 08:51] LABS: Anion Gap 5 mmol/L (8-16); Blood Urea Nitrogen 29 mg/dL (9-20); Calcium 7.8 mg/dL (8.4-10.2); Carbon Dioxide 35 mmol/L (22-30); Chloride 94 mmol/L (98-107); Estimated CRCL calculation 70 ml/min; Estimated Glomerular Filt Rate > 60; Glucose 85 mg/dL (75-110); Potassium 4.4 mmol/L (3.4-5.0); Sodium 134 mmol/L (137-145)
[2020-05-30] MEDS: FLUTICASONE PROPIONATE 0.05% NA SPR 16 GM BTL (*BKC) 1 SPRAY NASAL ×2 (08:55→17:16)
[2020-05-30] MEDS: PANTOPRAZOLE 40 MG TABLET PO (08:55)
[2020-05-30] MEDS: FUROSEMIDE 40 MG TABLET PO (08:56)
[2020-05-30] MEDS: VALSARTAN 20 MG TABLET PO (08:56)
[2020-05-30] MEDS: ASPIRIN 81 MG CHEWABLE TABLET PO (08:56)
[2020-05-30] MEDS: calcitrioL 0.25 MCG CAPSULE PO (08:56)
[2020-05-30] MEDS: POTASSIUM CHLORIDE 20 MEQ TABLET.ER PO ×2 (08:56→17:16)
[2020-05-30] MEDS: allopurinoL 300 MG TABLET PO (08:57)
[2020-05-30] MEDS: carvediloL 3.125 MG TABLET PO ×2 (08:57→21:55)
[2020-05-30] MEDS: CITALOPRAM HYDROBROMIDE 10 MG TABLET PO (08:58)
[2020-05-30] MEDS: TOLNAFTATE 1% POWDER 45 GM BTL 1 APPLIC TOPICAL ×2 (08:59→21:55)
--- NOTE | 2020-05-30 09:30 | PM.PNCARD ---
Progress Note: A&P Assessment and Plan (1) Ischemic cardiomyopathy with implantable cardioverter-defibrillator (ICD): Code(s): I25.5 - Ischemic cardiomyopathy; Z95.810 - Presence of automatic (implantable) cardiac defibrillator Status: Acute Assessment and Plan: diuresing well. Creatinine stable. 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 (2) Acute on chronic systolic (congestive) heart failure: Code(s): I50.23 - Acute on chronic systolic (congestive) heart failure Status: Acute Assessment and Plan: Primary ediphone operator Dr. Fernandez at [facility] (3) Prostate cancer: Code(s): C61 - Malignant neoplasm of prostate Status: Acute Subjective Date/time seen: 05/30/20 09:30 Pt feels fine today. No CP or SOB. Pt was seen and examined, chart was reviewed. Review of Systems Review of Systems: All systems reviewed & are unremarkable except as noted in HPI and below Constitutional: Constitutional: Reports as per HPI Eyes: Eyes: Reports as per HPI ENT: Reports system reviewed and no additional complaints, except as documented and Reports as per HPI Cardiovascular: Cardiovascular: Reports as per HPI Respiratory: Respiratory: Reports as per HPI Gastrointestinal: Gastrointestinal: Reports as per HPI Genitourinary: Genitourinary: Reports as per HPI Musculoskeletal: Musculoskeletal: Reports as per HPI Exam Const: General: no acute distress Nutritional Appearance: well nourished Orientation/consciousness: patient oriented x3 HENMT: Head: normal to inspection and atraumatic Ears: hearing grossly normal bilaterally Face and sinus: normal facial exam Eyes: General: appearance normal, both eyes and all related structures Pupils: Equal, round and reactive pupils present EOM: EOMs intact bilaterally Neck: Neck: supple Chest: Chest palpation & inspection: normal inspection of the chest Resp: Effort & Inspection: normal respiratory effort and no respiratory distress Auscultation: clear to auscultation bilaterally Cardio: Jugular venous distension: no JVD Rate: regular rate Heart sounds: S1 normal heart sound present, S2 normal heart sound present and no murmurs Peripheral pulses: Peripheral pulses 2+ throughout GI: GI Palp: No abdominal tenderness Auscultation: normal bowel sounds Skin: General skin exam: normal color Neuro: General: patient oriented x3 Cranial nerves: Yes Equal, round and reactive pupils present Extrem: General: normal to inspection and no clubbing, cyanosis or edema Objective Data Vital Signs Vital Signs: Vital Signs - 24 hr 05/29/20 12:00 05/29/20 14:34 05/29/20 16:00 Temperature 35.9 C L Pulse Rate 81 79 79 Respiratory Rate 18 Blood Pressure 95/46 L Pulse Oximetry 96 05/29/20 20:00 05/29/20 20:17 05/29/20 20:23 Temperature 36.1 C L Pulse Rate 79 80 80 Respiratory Rate 16 Blood Pressure 120/51 L Pulse Oximetry 97 05/29/20 20:26 05/29/20 20:30 05/30/20 00:00 Temperature Pulse Rate 79 Respiratory Rate Blood Pressure 129/79 108/48 L Pulse Oximetry 05/30/20 04:00 05/30/20 05:39 05/30/20 08:57 Temperature 36.4 C Pulse Rate 79 79 96 Respiratory Rate 16 Blood Pressure 135/68 Pulse Oximetry 92 Intake/Output Intake/Output: Intake & Output 05/27/20 05/28/20 05/29/20 05/30/20 23:59 23:59 23:59 23:59 Intake Total 2060 2130 2060 350 Output Total 3600 1550 3050 1350 Balance -1540 580 -990 -1000 Meds/Results Medications: Active Medications Generic Name Dose Route Start Last Admin Trade Name Jemalq PRN Reason Stop Dose Admin Albuterol 2 puff 05/22/20 00:13 05/27/20 09:12
[2020-05-30 09:33] LABS: Magnesium 1.8 mg/dL (1.6-2.3)
--- NOTE | 2020-05-30 11:04 | PCNWS ---
Weekly nutritional screen. Patient is tolerating current diet with adequate intake. No weight loss reported. No nutritional needs at this time.
[2020-05-30] MEDS: ACETAMINOPHEN 325 MG TABLET 650 MG PO (12:57)
--- NOTE | 2020-05-30 17:23 | PM.IMPN ---
Progress Note: A&P Assessment and Plan (1) Osteoarthritis: Code(s): M19.90 - Unspecified osteoarthritis, unspecified site Status: Chronic Assessment and Plan: Continue analgesics PRN pain. Continue ice/heat PRN. He is complaining of significant pain and will not ambulate with PT due to the pain. Plain films demonstrate severe osteoarthritis. I have asked orthopedic surgery to see him in consultation in case there is anything they can offer him at this time. (2) Physical deconditioning: Code(s): R53.81 - Other malaise Status: Acute Assessment and Plan: I talked with the patient again today and expressed that I think he needs to consider post-acute rehab to continue PT/OT. He is considering this. I spoke with Melisa with care coordination who will discuss this with him and look into options. He is considering rehab but is reluctant. I discussed barriers to discharge since he is unwilling to walk with PT. (3) Acute on chronic systolic (congestive) heart failure: Code(s): I50.23 - Acute on chronic systolic (congestive) heart failure Status: Acute Assessment and Plan: Patient was noted to be edematous and short of breath. BNP was elevated at 9950. Echo performed on 05/22 showed severely reduced EF 20-25% with abnormal wall motion secondary to pacing, grade 3 diastolic dysfunction, and possible small apical thrombus, mild MR and TR. He recently had ICD placed at [facility], [place]. Pulmonary edema and small pleural effusions were noted on CT. He has improved with diuresis and urine output is excellent. Cardiology is on board. Continue carvedilol and valsartan. Continue lasix. Continue to monitor strict I&O, daily weights, and heart healthy diet. Appreciate cardiology input. Cardiology does not recommend anticoagulation for the apical thrombus as it appears chronic. (4) Abnormal chest x-ray: Code(s): R93.89 - Abnormal findings on diagnostic imaging of other specified body structures Status: Acute Assessment and Plan: Initial chest x-ray was suggestive of pneumonia. Clinical picture and repeat imaging is more consistent with CHF exacerbation. Azithromycin and ceftriaxone were discontinued on 05/24. Patient is afebrile and without leukocytosis. No additional signs or symptoms of infection. Shortness of breath and cough have improved with diuresis. (5) UTI (urinary tract infection): Qualifiers: Urinary tract infection type: site unspecified Hematuria presence: without hematuria Qualified Code(s): N39.0 - Urinary tract infection, site not specified Code(s): N39.0 - Urinary tract infection, site not specified Status: Acute Assessment and Plan: Culture with Enterococcus, likely due to catheter which has been initiated for urinary retention. IV Unasyn 05/24, switched to ampicillin 05/25. He completed 5 days of treatment. He was been seen in consultation by Urology who recommend continuation of Lee catheter until follow-up on 05/30/2020 to discuss SP tube placement. (6) Orthostatic hypotension: Code(s): I95.1 - Orthostatic hypotension Status: Chronic Assessment and Plan: The patient has a hx of orthostatic hypotension and was on fludrocortisone prior to admission. He received IV fluid rehydration initially during this admission. IV fluids were discontinued due to CHF exacerbation. He was profoundly orthostatic 05/27. Lasix was held and his orthostasis has improved. Symptoms have improved. Cardiology is on board. Continue MARY KAY chavez. I discussed midodrine vs. fludrocortisone with Dr. Alexander. Due to concerns for underlying CHF, he would like to hold on adding additional agents that will retain fluid/increase BP. His orthostasis has improved significantly. Continue to monitor orthostatic BP. Continue fall precautions. (7) HTN (hypertension) with goal to be determined: Code(s): I10 - Essential (primary) hyperten
[2020-05-30] MEDS: PRAMIPEXOLE 0.125 MG TABLET PO (21:55)
[2020-05-30] MEDS: CINACALCET 30 MG TABLET PO (21:55)
[2020-05-31] VITALS (8 sets, daily range): BP systolic 102–128; BP diastolic 52–70; PULSE 78–79; RESP 16; TEMP 36.2; O2SAT 97
[2020-05-31] MEDS: gemfibroziL 600 MG TABLET PO (05:44)
[2020-05-31] MEDS: methylPREDNISolone ACETATE 80 MG/ML VIAL 160 MG I-ARTICULR (09:07)
[2020-05-31] MEDS: POTASSIUM CHLORIDE 20 MEQ TABLET.ER PO (09:09)
[2020-05-31] MEDS: allopurinoL 300 MG TABLET PO (09:09)
[2020-05-31] MEDS: carvediloL 3.125 MG TABLET PO (09:09)
[2020-05-31] MEDS: ASPIRIN 81 MG CHEWABLE TABLET PO (09:09)
[2020-05-31] MEDS: PANTOPRAZOLE 40 MG TABLET PO (09:09)
[2020-05-31] MEDS: calcitrioL 0.25 MCG CAPSULE PO (09:09)
[2020-05-31] MEDS: FUROSEMIDE 40 MG TABLET PO (09:09)
--- NOTE | 2020-05-31 09:09 | PM.CNOR ---
Assessment and Plan Assessment and plan (1) Osteoarthritis: Qualifiers: Osteoarthritis location: knee Osteoarthritis type: primary Code(s): M19.90 - Unspecified osteoarthritis, unspecified site Status: Chronic Assessment and Plan: Severe bilateral knee valgus arthritis. Significant deformity. Limits his ability to walk and stand. He uses a walker. He has severe physical deconditioning. Admitted with recent pneumonia. Other medical comorbidities. We discussed his condition. He is not a surgical candidate. We agreed to inject both knees with Depo-Medrol to provide some pain and swelling relief. This may improve his functioning and ability to transfer. Thank you for the consultation. History of Present Illness HPI Consult date: 05/31/20 Consult reason: joint pain Chief complaint: Dysuria, cutaneous candidiasis, possible pneumonia Narrative: Pleasant 79-year-old male with multiple medical comorbidities complains of severe bilateral knee pain. He has chronic history of arthritis and difficulty ambulating. He uses a walker. In home ambulator. Has tried conservative treatments in the past with modest benefit including injections. Denies instability or other symptoms. Notes swelling. Also complains of a history of left elbow injury. Moderate persistent discomfort with full extension. History of cervical myelopathy not amenable to surgery. Denies significant weakness. Review of Systems Review of Systems: Narrative: Recovering from pneumonia. Has a lesion on the back of is here. Bilateral pedal edema. 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 All systems reviewed & are unremarkable except as noted in HPI and below Respiratory: Respiratory: Denies dyspnea Gastrointestinal: Gastrointestinal: Reports diarrhea PMFSH Past Medical History Medical History Amputation toe left great toe Chronic back pain Chronic GERD Community acquired pneumonia COPD (chronic obstructive pulmonary disease) Depression Dysfunction of parathyroid Gout HTN (hypertension) with goal to be determined Hyperlipidemia Lung mass Orthostatic hypotension Osteoarthritis Pacemaker left upper chest Peripheral artery disease Restless leg syndrome Surgical History Surgical History H/O bilateral cataract extraction H/O heart artery stent H/O hernia repair History of back surgery History of tonsillectomy Hx of cholecystectomy Family History Family History Mother Renal disease Cancer Congestive heart failure Son Opiate overdose Father Congestive heart failure Social History Social History Social History: he stated that his cousin lives with him. He is . He had 2 sons but 1 did of opiate overdose. The patient is a full code believes his nephew is a durable power [employer] [place] attorney for healthcare. The patient retired from [employer]. The patient used to smoke and drink and states that he quit a long time ago. He denies any marijuana or drug use Tobacco type: cigarettes Alcohol intake: former Substance use: never Gender identity (if verbalized by the patient): Male Spiritual care concerns: No Meds Home Medications and Allergies Home Medications Medication Instructions Recorded Confirmed Type allopurinol 300 mg PO DAILY 05/21/20 05/21/20 History aspirin 81 mg PO DAILY 05/21/20 05/21/20 History calcipotriene 1 applic TOPICAL DAILY 05/21/20 05/21/20 History calcitriol 0.25 mcg PO DAILY 05/21/20 05/21/20 History cinacalcet 30 mg PO HS 05/21/20 05/21/20 History citalopram 10 mg PO DAILY 05/21/20 05/21/20 History desonide 1 applic TOPICAL BID PRN 05/21/20 05/21/20 History ergocalciferol (vitamin D2) 1,250 mcg PO WEEKLY 05/21/2005/21
[2020-05-31] MEDS: TOLNAFTATE 1% POWDER 45 GM BTL 1 APPLIC TOPICAL (09:10)
[2020-05-31] MEDS: CITALOPRAM HYDROBROMIDE 10 MG TABLET PO (09:10)
[2020-05-31] MEDS: FLUTICASONE PROPIONATE 0.05% NA SPR 16 GM BTL (*BKC) 1 SPRAY NASAL (09:10)
[2020-05-31] MEDS: VALSARTAN 20 MG TABLET PO (09:11)
--- NOTE | 2020-05-31 09:12 | PM.PNCARD ---
Progress Note: A&P Assessment and Plan (1) Ischemic cardiomyopathy with implantable cardioverter-defibrillator (ICD): Code(s): I25.5 - Ischemic cardiomyopathy; Z95.810 - Presence of automatic (implantable) cardiac defibrillator Status: Acute Assessment and Plan: Better compensated and now on PO lasix Orthostatic hypotension is better. Continue valsartan and Coreg both at low doses for known cardiomyopathy and EF 25% Echocardiogram showed suspected apical thrombus that appears chronic He is stable for discharge form cardiac standpoint. Need follow up with his primary vaccines solutions specialist Dr Fernandez in 1 week . (2) Acute on chronic systolic (congestive) heart failure: Code(s): I50.23 - Acute on chronic systolic (congestive) heart failure Status: Acute Assessment and Plan: Primary vaccines solutions specialist Dr. Fernandez at [facility] (3) Prostate cancer: Code(s): C61 - Malignant neoplasm of prostate Status: Acute Additional Plan Subjective Date/time seen: 05/31/20 09:12 No overnight events. He has been feeling well. There has been discussion about rehab which does not appear he is interested in. Review of Systems Review of Systems: All systems reviewed & are unremarkable except as noted in HPI and below Constitutional: Constitutional: Reports as per HPI and Reports lethargy Eyes: Eyes: Reports as per HPI ENT: Reports system reviewed and no additional complaints, except as documented and Reports as per HPI Cardiovascular: Cardiovascular: Reports as per HPI and Reports dyspnea Respiratory: Respiratory: Reports as per HPI and Reports dyspnea Gastrointestinal: Gastrointestinal: Reports as per HPI and Reports no additional gastrointestinal complaints Genitourinary: Genitourinary: Reports as per HPI Musculoskeletal: Musculoskeletal: Reports as per HPI Exam Narrative: Exam Narrative: Awake alert oriented x3 not in acute distress Neck is supple no obvious JVD, no carotid bruit Chest: bilateral basilar crackles noted Cardiovascular: Regular rate and rhythm, 2/6 systolic murmur noted left sternal border Abdomen: Soft nontender bowel sounds positive Extremities: trace edema noted, decreased pulses distally bilaterally noted Const: General: no acute distress Nutritional Appearance: well nourished Orientation/consciousness: patient oriented x3 HENMT: Head: normal to inspection and atraumatic Ears: hearing grossly normal bilaterally Face and sinus: normal facial exam Eyes: General: appearance normal, both eyes and all related structures Pupils: Equal, round and reactive pupils present EOM: EOMs intact bilaterally Neck: Neck: supple Chest: Chest palpation & inspection: normal inspection of the chest Resp: Effort & Inspection: normal respiratory effort and no respiratory distress Auscultation: clear to auscultation bilaterally Cardio: Jugular venous distension: no JVD Rate: regular rate Heart sounds: S1 normal heart sound present, S2 normal heart sound present and no murmurs Peripheral pulses: Peripheral pulses 2+ throughout GI: Auscultation: normal bowel sounds Skin: General skin exam: normal color Neuro: General: patient oriented x3 Cranial nerves: Yes Equal, round and reactive pupils present Extrem: General: normal to inspection and no clubbing, cyanosis or edema Objective Data Vital Signs Vital Signs: Vital Signs - 24 hr 05/30/20 12:00 05/30/20 14:08 05/30/20 16:00 Temperature 36.3 C L Pulse Rate 79 79 79 Respiratory Rate 12 Blood Pressure 127/54 L Pulse Oximetry 97 05/30/20 20:00 05/30/20 21:41 05/30/20 21:47 Temperature 36.6 C Pulse Rate 79 80 Respiratory Rate 18 Blood Pressure 128/68 128/68 113/55 L Pulse Oximetry 96 05/30/20 21:48 05/30/20 21:55 05/31/20 00:00 Temperature Pulse Rate 80 79 Respiratory Rate Blood Pressure 97/57 L Pulse Oximetry 05/31/20 04:00 05/31/20 05:46 05/31/20 08:00 Temperat
--- NOTE | 2020-05-31 12:54 | PM.DS ---
DS: Admitting Diagnosis Admitting Diagnosis Admitting Diagnosis: Dysuria, cutaneous candidiasis, possible pneumonia DS: Discharge Diagnosis Discharge Diagnosis (1) Acute on chronic systolic (congestive) heart failure: Code(s): I50.23 - Acute on chronic systolic (congestive) heart failure Status: Acute Assessment and Plan: Discharge Summary (Date of service 05/31/20): Mr. Anderson is a 79 y.o. male with PMH significant for COPD, HLD, HTN, GERD, orthostatic hypotension, and PAD who presented to the emergency department for the evaluation of leaking around his roa catheter. Initial workup in the emergency department suggested UTI on urinalysis, 4cm right suprahilar mass and mild perihilar opacities of the right upper lobe. He was admitted to the hospitalist service and treated for UTI and pneumonia initially. Patient was noted to be edematous and short of breath. BNP was elevated at 9950. Echo performed on 05/22 showed severely reduced EF 20-25% with abnormal wall motion secondary to pacing, grade 3 diastolic dysfunction, and possible small apical thrombus, mild MR and TR. He recently had ICD placed at [facility]. Pulmonary edema and small pleural effusions were noted on CT. IV antibiotics for possible CAP were discontinued and he was treated for acute CHF exacerbation. Cardiology was consulted. He improved significantly with diuresis. Carvedilol and valsartan were initiated. Cardiology does not recommend anticoagulation for the apical thrombus as it appears chronic. Fludrocortisone was discontinued given reduced EF and CHF exacerbation and he subsequently developed orthostasis following diuresis. This improved with holding diuresis and he was no longer symptomatic with standing. 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 Arterial duplex was ordered and showed 1.5 cm aneurysm and moderate to severe left superficial femoral artery stenosis. He was advised to follow-up outpatient with cardiology and his PCP. 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 He was advised to continue follow-up with with PCP outpatient for monitoring. He was advised to practice fall precautions and wear MARY KAY hose. He was discharged in stable condition on the afternoon of 05/31/20. (2) Osteoarthritis: Qualifiers: Osteoarthritis location: knee Osteoarthritis type: primary Code(s): M19.90 - Unspecified osteoarthritis, unspecified site Status: Chronic Assessment and Plan: Conservative care with analgesics, ice/heat were continued. He was seen by orthopedic surgery for bilateral depo-medrol joint injections. (3) Physical deconditioning: Code(s): R53.81 - Other malaise Status: Acute Assessment and Plan: I encouraged the patient to consider post-acute rehab to continue PT/OT. He adamantly refused to consider post-acute SNF for PT/OT and chose to discharge home against my recommendations. He does have 11/04 help available at home with family and home health. 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 He will need to follow-up outpatient with cardiology and his PCP. (5) UTI (urinary tract infection): Qualifiers: Hematuria presence: without hematuria Urinary tract infection type: site unspecified Qualified Code(s): N39.0 - Urinary tract infection, site not specified Code(s): N39.0 - Urinary tract infection, site not specified Status: Acute Assessment and Plan:
== END 2020-05-31 15:50 | disposition home health service (06) | DRG 292 ==
LOC: ANHED 16:21 → ANH3MED 18:50
PROVIDERS: Family Medicine; Internal Medicine; Nurse Practitioner; Physician Assistant; Specialist; Admitting Provider Family Medicine; Emergency Provider Emergency Medicine; Visit Provider Physician Assistant
DX: I11.0 Hypertensive heart disease with heart failure (principal); T83.511A Infection and inflammatory reaction due to indwelling urethral catheter, initial encounter; N39.0 Urinary tract infection, site not specified; J44.0 Chronic obstructive pulmonary disease with (acute) lower respiratory infection; B95.2 Enterococcus as the cause of diseases classified elsewhere; Z23 Encounter for immunization; I50.23 Acute on chronic systolic (congestive) heart failure; E78.5 Hyperlipidemia, unspecified; R91.8 Other nonspecific abnormal finding of lung field; R33.9 Retention of urine, unspecified; F32.9 Major depressive disorder, single episode, unspecified; I95.1 Orthostatic hypotension; M10.9 Gout, unspecified; G25.81 Restless legs syndrome; M54.9 Dorsalgia, unspecified; G89.29 Other chronic pain; K21.9 Gastro-esophageal reflux disease without esophagitis; E21.4 Other specified disorders of parathyroid gland; B37.2 Candidiasis of skin and nail; I25.10 Atherosclerotic heart disease of native coronary artery without angina pectoris; C61 Malignant neoplasm of prostate; I25.5 Ischemic cardiomyopathy; I73.9 Peripheral vascular disease, unspecified; J44.9 Chronic obstructive pulmonary disease, unspecified; M17.0 Bilateral primary osteoarthritis of knee; M70.22 Olecranon bursitis, left elbow; E66.9 Obesity, unspecified; Z98.41 Cataract extraction status, right eye; Z98.42 Cataract extraction status, left eye; Z89.412 Acquired absence of left great toe; Z95.5 Presence of coronary angioplasty implant and graft; Z90.49 Acquired absence of other specified parts of digestive tract; Z95.810 Presence of automatic (implantable) cardiac defibrillator; Z87.891 Personal history of nicotine dependence; Z68.34 Body mass index [BMI] 34.0-34.9, adult
CPT/HCPCS: 36415; 71045; 71260; 73080; 73562; 74177; 80048; 80053; 80061; 81001; 83605; 83735; 83880; 83970; 84443; 84550; 85025; 85027; 85610; 85652; 85730; 86140; 86430; 87040; 87070; 87077; 87086; 87088; 87186; 87205; 90471; 90686; 93306; 93926; 94640; 96361; 96365; 96366; 96368; 96375; 96376; 97110; 97116; 97161; 97166; 97530; 97535; 99285; A9270; C8929; G0008; G0378; J0290; J0295; J0456; J0696; J1040; J1940; J2270; J3475; J7030; Q9957; Q9967